=== PATIENT | female | born 1955 | race African-American/Black ===

== ENCOUNTER 2022-08-27 15:54 | Observation (INO) | payer MEDICARE, SELFPAY ==
[2022-08-27] VITALS (11 sets, daily range): BP systolic 157–200; BP diastolic 67–167; PULSE 55–65; RESP 14–19; TEMP 36.2; O2SAT 98–100
--- NOTE | ~2022-08-27 | CT_ITS ---
EXAMINATION: CT brain wo con DATE: 08/27/2022 17:49 INDICATION: Headache. TECHNIQUE: Computed tomography (CT) of the head was performed without intravenous contrast. The mA wa s adjusted according to patient size. Iterative reconstruction technique was employed. The dose-lengt h product was 605.33 mGy-cm. COMPARISON: None FINDINGS: There are scattered areas of low attenuation in the cerebral white matter. There is no intr acranial hemorrhage, acute infarction, or abnormal intracranial mass lesion. The ventricles are amparo l in size. The orbits are normal. There is mucosal thickening in the paranasal sinuses. There is near complete opacification of right sphenoid sinus with thickening and sclerosis of the sinus pires, con sistent with chronic sinusitis. The mastoid air cells are normal. IMPRESSION: 1. Moderate nonspecific cerebral white matter disease, which likely represents chronic small vessel i schemic disease. 2. Chronic sinusitis. Reviewed, dictated and finalized at location A. [facility] [employer] IMPRESSION: 1. Moderate nonspecific cerebral white matter disease, which likely represents chronic small vessel ischemic disease. 2. Chronic sinusitis.
--- NOTE | ~2022-08-27 | CT_ITS ---
EXAMINATION: CTA brain carotid DATE: 08/27/2022 23:18 INDICATION: Headache and dizziness. TECHNIQUE: Computed tomographic angiography (CTA) of the head was performed with 100 mL Omnipaque-350 intravenous contrast. CTA of the neck was performed with intravenous contrast. Automated exposure co ntrol and iterative reconstruction technique were employed. The dose-length product was 1203.26 mGy-c m. Maximum intensity projection and volume rendered 3D-reconstructions were created by the [employer]en Home[employer] st on a separate workstation. COMPARISON: Head CT 08/27/2022 FINDINGS: HEAD CTA: There are scattered areas of low attenuation in the cerebral white matter. There is no intr acranial hemorrhage, acute infarction, or abnormal intracranial mass lesion. The ventricles are amparo l in size. The orbits are normal. There is mucosal thickening in the paranasal sinuses. There is near complete opacification of right sphenoid sinus with thickening and sclerosis of the sinus pires, con sistent with chronic sinusitis. The mastoid air cells are normal. The vertebral arteries are codomina nt. There is no significant stenosis of basilar artery or the posterior cerebral arteries. There is m oderate stenosis of right cavernous internal carotid artery. There is mild stenosis of intracranial l eft internal carotid artery. There is no significant stenosis of the anterior or middle cerebral vivek ilene. Anterior communicating artery is normal. The posterior communicating arteries are normal. There is no aneurysm. NECK CTA: Calcified left lung nodules and calcified left hilar and mediastinal lymph nodes are consis tent with old granulomatous disease. There are nodules in the thyroid measuring up to 11 mm, likely n ot clinically significant. There are no pathologically enlarged lymph nodes. There is no significant stenosis of the vertebral arteries. There is plaque in the proximal internal carotid arteries. There is 0% stenosis of the proximal right internal carotid artery relative to normal distal artery lumen d iameter (NASCET criteria). There is 0% stenosis of the proximal left internal carotid artery relative to normal distal artery lumen diameter. There is mild cervical spondylosis. IMPRESSION: 1. Moderate nonspecific cerebral white matter disease, which likely represents chronic small vessel i schemic disease. 2. 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 3. Chronic sinusitis. 4. 0% stenosis of the proximal internal carotid arteries relative to normal distal artery lumen diame ters (NASCET criteria). Reviewed, dictated and finalized at location A. [employer] IMPRESSION: 1. Moderate nonspecific cerebral white matter disease, which likely represents chronic small vessel ischemic disease. 2. 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 3. Chronic sinusitis. 4. 0% stenosis of the proximal internal carotid arteries relative to normal dis benny artery lumen diameters (NASCET criteria).
--- NOTE | 2022-08-27 18:51 | ECG_ITS ---
Measurements Intervals [place] Rate: 55 P: 18 IL: 187 QRS: -5 QRSD: 107 T: 31 QT: 429 QTc: 414 Interpretive Statements SINUS BRADYCARDIA BASELINE ARTIFACT- I, III, AVR, AVL, AVF BORDERLINE ECG NO PREVIOUS ECG AVAILABLE FOR COMPARISON Electronically Signed On 08-29-2022 6:44:54 TRACTOR CRANE OPERATOR by Dylan Fritz D.O.
[2022-08-27 19:20] LABS: Basophils Percent Auto 0.3 % (0.2-1.2); Eosinophils Absolute Auto 0.1 K/mm3 (0-0.3); Eosinophils Percent Auto 1.4 % (0-4.4); Hematocrit 39.2 % (37.0-47.0); Hemoglobin 12.3 g/dL (12.0-15.0); Immature Granulocyte Absolute 0.02 K/mm3 (0.00-0.031); Immature Granulocyte Percent A 0.3 % (0-0.5); Lymphocytes Absolute Auto 2.91 K/mm3 (0.9-3.2); Lymphocytes Percent Auto 38.2 % (18.3-44.2); Mean Corpuscular HGB Conc 31.4 g/dl (32-36); Mean Corpuscular Hemoglobin 26.2 pg (26-34); Mean Corpuscular Volume 83.6 fl (80-100); Mean Platelet Volume 11.4 fl (7.4-10.4); Monocytes Absolute Auto 0.7 K/mm3 (0.1-0.6); Monocytes Percent Auto 9.3 % (2.6-8.5); Neutrophils Absolute Auto 3.8 K/mm3 (1.3-6.7); Neutrophils Percent Auto 50.5 % (45.5-73.1); Platelet Count Result 273 k/mm3 (150-375); Red Blood Count 4.69 M/mm3 (4.2-5.4); Red Cell Distribution Width 14.5 % (11.5-14.5); White Blood Count 7.6 K/mm3 (4.5-10.0)
[2022-08-27 19:30] LABS: Anion Gap 5 mmol/L (8-16); Blood Urea Nitrogen 20 mg/dL (7-17); Calcium 8.8 mg/dL (8.4-10.2); Carbon Dioxide 28 mmol/L (22-30); Chloride 109 mmol/L (98-107); Estimated Glomerular Filt Rate > 60; Glucose 113 mg/dL (65-110); Sodium 142 mmol/L (137-145)
[2022-08-27] MEDS: METOCLOPRAMIDE HCL INJ 10 MG/2 ML VIAL IV PUSH (19:32)
[2022-08-27] MEDS: SODIUM CHLORIDE 0.9% IV 500 ML 999 ML IV CONT (19:32)
[2022-08-27] MEDS: diphenhydrAMINE HCl INJ 50 MG/ML VIAL 25 MG IV PUSH (19:32)
[2022-08-27 19:47] LABS: Erythrocyte Sedimentation Rate 42 mm/hr (0-20)
--- NOTE | 2022-08-27 19:51 | PC.NURSE ---
1914 Assumed pt care from KOKO Hercules
--- NOTE | 2022-08-27 19:53 | ED.HA ---
HPI - Headache General Chief Complaint: Headache <Tati Peters PA-C - Last Filed: 08/28/22 01:58> Stated Complaint: CHRONIC HEADACHE <Tati Peters PA-C - Last Filed: 08/28/22 01:58> Time Seen by Provider: 08/27/22 18:22 <Tati Peters PA-C - Last Filed: 08/28/22 01:58> Source: patient <MYESHA Julio Last Filed: 08/28/22 01:58> Mode of arrival: ambulatory <Tati Peters PA-C - Last Filed: 08/28/22 01:58> Limitations: no limitations <Tati Peters PA-C - Last Filed: 08/28/22 01:58> History of Present Illness HPI Narrative: This is a 66 year old female that presents to the ER for headaches ongoing over the last couple of days. Reports associated elevated blood pressure. Reports she has been taking her home antihypertensives as prescribed. Reports a right sided aching headache associated with some intermittent blurry vision. Does not report she gets headaches too often. She has been taking Tylenol and Ibuprofen with some relief. Denies fever, vomiting, numbness or weakness. <Tati Peters PA-C - Last Filed: 08/28/22 01:58> Related Data Allergies/Adverse Reactions: Allergies Allergy/AdvReac Type Severity Reaction Status Date / Time No Known Allergies Allergy Verified 08/27/22 22:13 <Tati Peters PA-C - Last Filed: 08/28/22 01:58> Review of Systems Review of Systems: CONSTITUTIONAL: Denies fever EYES: Reports visual changes GASTROINTESTINAL: Denies nausea, vomiting NEUROLOGIC: Reports headache. Denies numbness, or weakness. <Tati Peters PA-C - Last Filed: 08/28/22 01:58> All systems reviewed & are unremarkable except as noted in HPI and below <Tati Peters PA-C - Last Filed: 08/28/22 01:58> PMFSH Past Medical History Medical History: Medical History (Updated 08/28/22 @ 01:49 by Tati Peters PA-C) History of diabetes mellitus History of hypertension <Tati Peters PA-C - Last Filed: 08/28/22 01:58> Social History Social History: Social History (Updated 08/27/22 @ 20:03 by Tati Peters PA-C) Smoking status: Never smoker <Tati Peters PA-C - Last Filed: 08/28/22 01:58> Exam Narrative: GENERAL: Well-appearing, well-nourished, and in no acute distress. HEAD: Normocephalic, atraumatic. EYES: PERRLA and EOMI. ENT: Nares clear, no rhinorrhea or epistaxis. Mucous membranes moist. Oropharynx without tonsillar hypertrophy exudate or other lesions. Bilateral TMs pearly real non-bulging NECK: Supple. No adenopathy or masses. CHEST: Clear to auscultation. No respiratory distress. No wheezes rales or rhonchi HEART: Regular rate and rhythm. No murmur heard. Normal peripheral pulses. EXTREMITIES: Normal range of motion. No edema. Strength equal in bilateral upper and lower extremities (5/5) SKIN: Warm, dry, no rash. NEURO: No focal deficits. Alert and oriented x3. Cranial nerves II through XII grossly intact. Normal gait PSYCH: Normal mood and affect <Tati Peters PA-C - Last Filed: 08/28/22 01:58> Course Course Emergency Course: Patient updated on workup thus far and need for admission. Reporting she is having a headache again. Tylenol ordered <Tati Peters PA-C - Last Filed: 08/28/22 01:58> FINANCIAL SERVICES TECHNICIAN/PA Physician Supervision For this patient encounter, I reviewed the FINANCIAL SERVICES TECHNICIAN or PA documentation, treatment plan, and medical decision making <Jim Andrade MD - Last Filed: 08/28/22 02:53> Consultations Consultation #1: Spoke with Dr. Salazar, vascular surgery about workup. Patient may follow up outpatient for findings on CTA, would need follow up with neurosurgery as the stenosis is in the cavernous carotid artery <Tati Peters PA-C - Last Filed: 08/28/22 01:58> Date: 08/28/22 <Tati Peters PA-C - Last Filed: 08/28/22 01:58> Consultation #2: Spoke with hospitalist about patient and workup who accepts admission <Tati Peters PA-C - Last Filed: 08/28/22 01:58> Date:
[2022-08-27 20:31] LABS: Alanine Aminotransferase 17 U/L (6-35); Alkaline Phosphatase 86 U/L (38-126); Aspartate Amino Transferase 24 U/L (14-36); Bilirubin,Total 0.3 mg/dL (0.2-1.3)
[2022-08-27 20:40] LABS: CRP 1.3 mg/dL (<1.0)
[2022-08-27 21:46] LABS: Influenza A QL RT-PCR Negative (Negative); Influenza B QL RT-PCR Negative (Negative); SARS-CoV-2 RNA PCR Negative
[2022-08-27] MEDS: METOPROLOL SUCCINATE EXT REL 100 MG TABCR PO (22:07)
[2022-08-27] MEDS: NIFEdipine 30 MG TAB.ER.24 PO (22:07)
[2022-08-28] VITALS (20 sets, daily range): BP systolic 141–196; BP diastolic 52–77; PULSE 47–71; RESP 16–26; TEMP 36.6–37.1; O2SAT 98–100; BMI 36.3
[2022-08-28] MEDS: hydrALAZINE HCL 20 MG/ML VIAL 10 MG IV PUSH (01:00)
[2022-08-28] MEDS: LOSARTAN POTASSIUM 50 MG TABLET PO (01:00)
--- NOTE | 2022-08-28 02:42 | ADMGEN ---
This patient, Jacinda Tenorio, was admitted to Medical Room 258-01. Patient/family oriented to hospital policies and general routines including ID bracelet, bed and alarms, visiting hours, pain management, procedures, bathroom and other care routines, personal items, smoking policy, room service/diet, and visiting hours. Information on how to activate the Rapid Response Team has been discussed. Patient/Family are encouraged to report perceived risks to care and to ask questions if they do not understand what they are told or what they should do.
--- NOTE | 2022-08-28 03:13 | PM.IMHP ---
H&P: HPI History of Present Illness Date/Time: 08/28/22 03:13 Chief Complaint: Headache Narrative: This is a 66-year-old female with past medical history significant for type 2 diabetes mellitus, hypertension. Patient presents to the emergency room due to daily occipital headache for about a week or so and uncontrolled hypertension. Patient also had blurry vision and a scotomas, denies any epigastric pain or chest pain or palpitations no ankle swelling or leg swelling or pedal swelling, no nausea, no vomiting, no syncope, no near syncope no lightheadedness. Patient states that she takes her medications daily at nighttime. Blood pressure upon presentation to emergency room was 200/167. Preliminary workup was significant for CT of the head was reported as: FINDINGS: There are scattered areas of low attenuation in the cerebral white matter. There is no intracranial hemorrhage, acute infarction, or abnormal intracranial mass lesion. The ventricles are normal in size. The orbits are normal. There is mucosal thickening in the paranasal sinuses. There is near complete opacification of right sphenoid sinus with thickening and sclerosis of the sinus pires, consistent with chronic sinusitis. The mastoid air cells are normal. IMPRESSION: 1. Moderate nonspecific cerebral white matter disease, which likely represents chronic small vessel ischemic disease. 2. Chronic sinusitis. CTA of head and neck was reported as; FINDINGS: HEAD CTA: There are scattered areas of low attenuation in the cerebral white matter. There is no intracranial hemorrhage, acute infarction, or abnormal intracranial mass lesion. The ventricles are normal in size. The orbits are normal. There is mucosal thickening in the paranasal sinuses. There is near complete opacification of right sphenoid sinus with thickening and sclerosis of the sinus pires, consistent with chronic sinusitis. The mastoid air cells are normal. The vertebral arteries are codominant. There is no significant stenosis of basilar artery or the posterior cerebral arteries. There is moderate stenosis of right cavernous internal carotid artery. There is mild stenosis of intracranial left internal carotid artery. There is no significant stenosis of the anterior or middle cerebral arteries. Anterior communicating artery is normal. The posterior communicating arteries are normal. There is no aneurysm. NECK CTA: Calcified left lung nodules and calcified left hilar and mediastinal lymph nodes are consistent with old granulomatous disease. There are nodules in the thyroid measuring up to 11 mm, likely not clinically significant. There are no pathologically enlarged lymph nodes. There is no significant stenosis of the vertebral arteries. There is plaque in the proximal internal carotid arteries. There is 0% stenosis of the proximal right internal carotid artery relative to normal distal artery lumen diameter (NASCET criteria). There is 0% stenosis of the proximal left internal carotid artery relative to normal distal artery lumen diameter. There is mild cervical spondylosis. IMPRESSION: 1. Moderate nonspecific cerebral white matter disease, which likely represents chronic small vessel ischemic disease. 2. 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 3. Chronic sinusitis. 4. 0% stenosis of the proximal internal carotid arteries relative to normal distal artery lumen diameters (NASCET criteria). Patient is being admitted for further evaluation management and treatment. Review of Systems Review of Systems: Occipital headache, scotomas, uncontrolled blood pressure. Constitutional: Constitutional: Denies chills, Denies fever(s), Denies malaise and Denies weakness Eyes: Eyes: Reports floaters ENT: Denies dysphagia, Denies vertigo, Denies dizziness, Denies odynophagia and Denies disequilibrium Cardiovascular: Cardiovascular: Denies edema, Denies claudication, Denies leg edema, Denies lightheadedness, Denies radiating jaw,
[2022-08-28] MEDS: ASPIRIN 81 MG ENTERIC TABLET PO (08:19)
[2022-08-28] MEDS: POTASSIUM CHLORIDE 20 MEQ TABLET.ER 40 MEQ PO (08:19)
[2022-08-28] MEDS: METOPROLOL SUCCINATE EXT REL 100 MG TABCR PO (08:20)
[2022-08-28] MEDS: FUROSEMIDE 40 MG TABLET PO (08:20)
[2022-08-28] MEDS: OLMESARTAN MEDOXOMIL 20 MG TABLET PO (08:20)
[2022-08-28] MEDS: NIFEdipine 30 MG TAB.ER.24 PO (08:20)
[2022-08-28] MEDS: SIMVASTATIN 20 MG TABLET PO (08:20)
[2022-08-28] MEDS: ACETAMINOPHEN 325 MG TABLET 650 MG PO ×3 (08:30→20:30)
[2022-08-28 09:16] LABS: Glucose Point of Care 157 mg/dl (65-105)
[2022-08-28 11:56] LABS: Glucose Point of Care 144 mg/dl (65-105)
--- NOTE | 2022-08-28 12:09 | PM.IMPN ---
Progress Note: A&P Assessment and Plan (1) Hypertensive urgency: Code(s): I16.0 - Hypertensive urgency Status: Acute Assessment and Plan: Admit to regular medical floor Restart home meds Continue to monitor 08/28/2022 interval history: 66-year-old female presented emergency department with complaint REZA, upon arrival systolic blood pressure was 200, patient states CC had been taking blood pressure medication regularly, however a blood pressure is trending on current regimen, CT scan of the head showed chronic small-vessel ischemic disease suggesting chronic elevated blood pressure most likely cause of her headache however will consult neurologist further recommendation, continue to monitor, I explained to the patient need to bring her blood pressure down slowly. (2) Headache: Qualifiers: Headache chronicity pattern: acute headache Headache type: unspecified Intractability: not intractable Qualified Code(s): R51.9 - Headache, unspecified Code(s): R51.9 - Headache, unspecified Status: Acute Assessment and Plan: Like please secondary to uncontrolled hypertension CT of the head reviewed CTA reviewed (3) Type 2 diabetes mellitus: Code(s): E11.9 - Type 2 diabetes mellitus without complications Status: Acute Assessment and Plan: Continue Januvia (4) Obesity (BMI 30-39.9): Code(s): E66.9 - Obesity, unspecified Status: Acute Assessment and Plan: Lifestyle and diet modifications Subjective Date/time seen: 08/28/22 12:09 Headache HPI-Narrative: This is a 66-year-old female with past medical history significant for type 2 diabetes mellitus, hypertension.? Patient presents to the emergency room due to daily occipital headache for about a week or so and uncontrolled hypertension.? Patient also had blurry vision and a scotomas, denies any epigastric pain or chest pain or palpitations no ankle swelling or leg swelling or pedal swelling, no nausea, no vomiting, no syncope, no near syncope no lightheadedness.? Patient states that she takes her medications daily at nighttime. Blood pressure upon presentation to emergency room was 200/167.? Preliminary workup was significant for CT of the head was reported as: FINDINGS: There are scattered areas of low attenuation in the cerebral white matter. There is no intracranial hemorrhage, acute infarction, or abnormal intracranial mass lesion. The ventricles are normal in size. The orbits are normal. There is mucosal thickening in the paranasal sinuses. There is near complete opacification of right sphenoid sinus with thickening and sclerosis of the sinus pires, consistent with chronic sinusitis. The mastoid air cells are normal. IMPRESSION: 1. Moderate nonspecific cerebral white matter disease, which likely represents chronic small vessel ischemic disease. 2. Chronic sinusitis. CTA of head and neck was reported as; 08/28/2022 interval history: 66-year-old female presented emergency department with complaint REZA, upon arrival systolic blood pressure was 200, patient states CC had been taking blood pressure medication regularly, however a blood pressure is trending on current regimen, CT scan of the head showed chronic small-vessel ischemic disease suggesting chronic elevated blood pressure most likely cause of her headache however will consult neurologist further recommendation, continue to monitor, I explained to the patient need to bring her blood pressure down slowly. Review of Systems Review of Systems: Occipital headache, scotomas, uncontrolled blood pressure. Constitutional: Constitutional: Denies chills, Denies fever(s), Denies malaise and Denies weakness Eyes: Eyes: Reports floaters ENT: Denies dysphagia, Denies vertigo, Denies dizziness, Denies odynophagia and Denies disequilibrium Cardiovascular: Cardiovascular: Denies edema, Denies claudication, Denies leg edema, Denies lightheadedness, Denies radiating jaw, nec
[2022-08-28 17:29] LABS: Glucose Point of Care 115 mg/dl (65-105)
[2022-08-28 20:29] LABS: Glucose Point of Care 248 mg/dl (65-105)
[2022-08-28] MEDS: IBUPROFEN 400 MG TABLET PO (22:47)
[2022-08-29] VITALS: PULSE 63
[2022-08-29] MEDS: ACETAMINOPHEN 325 MG TABLET 650 MG PO ×2 (02:32→09:07)
[2022-08-29 04:00] VITALS: PULSE 61
[2022-08-29 05:13] VITALS: BP 156/62; PULSE 70; RESP 18; TEMP 36.8; O2SAT 96
[2022-08-29 09:00] VITALS: PULSE 65
[2022-08-29 09:08] VITALS: PULSE 61
[2022-08-29] MEDS: METOPROLOL SUCCINATE EXT REL 100 MG TABCR PO (09:08)
[2022-08-29] MEDS: NIFEdipine 30 MG TAB.ER.24 PO (09:09)
[2022-08-29] MEDS: POTASSIUM CHLORIDE 20 MEQ TABLET.ER 40 MEQ PO (09:09)
[2022-08-29] MEDS: FUROSEMIDE 40 MG TABLET PO (09:09)
[2022-08-29] MEDS: SIMVASTATIN 20 MG TABLET PO (09:09)
[2022-08-29] MEDS: OLMESARTAN MEDOXOMIL 20 MG TABLET PO (09:09)
[2022-08-29] MEDS: ASPIRIN 81 MG ENTERIC TABLET PO (09:09)
--- NOTE | 2022-08-29 09:22 | WPDNEURCNPN ---
Assessment and Plan Assessment and plan (1) Headache: Qualifiers: Headache chronicity pattern: acute headache Headache type: unspecified Intractability: not intractable Qualified Code(s): R51.9 - Headache, unspecified Code(s): R51.9 - Headache, unspecified Status: Acute (2) Hypertensive urgency: Code(s): I16.0 - Hypertensive urgency Status: Acute (3) Type 2 diabetes mellitus: Code(s): E11.9 - Type 2 diabetes mellitus without complications Status: Acute (4) Obesity (BMI 30-39.9): Code(s): E66.9 - Obesity, unspecified Status: Acute Plan Jacinda Tenorio is a 66 year old female with a history of hypertension and diabetes presenting due to headache in the setting of hypertensive urgency. BP is still elevated in the 150s. - For persistent headache can trial migraine cocktail - Toradol 15mg, Benadryl 25mg, and Compazine 10mg - If no relief can repeat in 4 hours - If no improvement despite two trials of migraine cocktail can give IV Magnesium 2000mg - If headache is refractory to all medications, recommend MRV brain to rule out CVST - Outpatient Neurosurgery follow-up for carotid stenosis Consult date: 08/29/22 Reason for consult: Headache HPI: Jacinda Tenorio is a 66 year old female with a history of hypertension and diabetes presenting due to headache. Patient presented on 08/28 due to headache over the past few days and elevated BP (despite taking her antihypertensives). The headache was localized to the R side with associated blurriness of vision and seeing floaters. She describes headache as pressure like without any photophobia/phonophobia or nausea/vomiting. Headache location moved to the back of the head. She has no prior history of migraines. She did have some relief with Tylenol and ibuprofen at home. When patient presented to the emergency room, her blood pressure was in the 200s systolic. She was given a dose of hydralazine which brought the blood pressure down to 140s. CT head was unremarkable. CTA brain/carotid did show moderate stenosis of R cavernous ICA. The imaging findings were discussed with vascular surgeon and it was recommended that she have outpatient Neurosurgery evaluation for the ICA stenosis. Patient was subsequently admitted for hypertensive urgency. BP has been mostly in the 150s since admission. She continues to have a dull constant headache. She currently reports the headache as 6/10. She has no other complaints at this time. Review of Systems Constitutional: Constitutional: Reports no additional constitutional complaints Eyes: Eyes: Reports blurry vision ENT: Reports system reviewed and no additional complaints, except as documented Cardiovascular: Cardiovascular: Reports no additional cardiovascular complaints Respiratory: Respiratory: Reports no additional respiratory complaints Gastrointestinal: Gastrointestinal: Reports no additional gastrointestinal complaints Genitourinary: Genitourinary: Reports no additional female genitourinary complaints Musculoskeletal: Musculoskeletal: Reports no additional musculoskeletal complaints Integumentary/Breasts: Skin/Breast: Reports system reviewed and no additional complaints, except as docu Neurologic: Reports headache(s) Psychiatric: Psychiatric: Reports no additional psychiatric complaints [facility] Past Medical History Medical History History of diabetes mellitus History of hypertension Family History Family History Father Cerebrovascular accident Mother Cerebrovascular accident Sibling Heart attack S/P triple vessel bypass Breast cancer Social History Social History Smoking status: Never smoker Alcohol intake: never Substance use: never Lack of Transportation: No Lack of Food: Never
--- NOTE | 2022-08-29 12:27 | PM.DS ---
DS: Admitting Diagnosis Discharge Date 08/29/2022 Admitting Diagnosis headache DS: Discharge Diagnosis Discharge Diagnosis (1) Hypertensive urgency: Code(s): I16.0 - Hypertensive urgency Status: Acute Assessment and Plan: Admit to regular medical floor Restart home meds Continue to monitor 08/28/2022 interval history: 66-year-old female presented emergency department with complaint REZA, upon arrival systolic blood pressure was 200, patient states CC had been taking blood pressure medication regularly, however a blood pressure is trending on current regimen, CT scan of the head showed chronic small-vessel ischemic disease suggesting chronic elevated blood pressure most likely cause of her headache however will consult neurologist further recommendation, continue to monitor, I explained to the patient need to bring her blood pressure down slowly. (2) Headache: Qualifiers: Headache chronicity pattern: acute headache Headache type: unspecified Intractability: not intractable Qualified Code(s): R51.9 - Headache, unspecified Code(s): R51.9 - Headache, unspecified Status: Acute Assessment and Plan: Like please secondary to uncontrolled hypertension CT of the head reviewed CTA reviewed (3) Type 2 diabetes mellitus: Code(s): E11.9 - Type 2 diabetes mellitus without complications Status: Acute Assessment and Plan: Continue Januvia (4) Obesity (BMI 30-39.9): Code(s): E66.9 - Obesity, unspecified Status: Acute Assessment and Plan: Lifestyle and diet modifications DS: Summary Hospital Course Reason for hospitalization: Headache Narrative: This is a 66-year-old female with past medical history significant for type 2 diabetes mellitus, hypertension.? Patient presents to the emergency room due to daily occipital headache for about a week or so and uncontrolled hypertension.? Patient also had blurry vision and a scotomas, denies any epigastric pain or chest pain or palpitations no ankle swelling or leg swelling or pedal swelling, no nausea, no vomiting, no syncope, no near syncope no lightheadedness.? Patient states that she takes her medications daily at nighttime. Blood pressure upon presentation to emergency room was 200/167.? Preliminary workup was significant for CT of the head was reported as: FINDINGS: There are scattered areas of low attenuation in the cerebral white matter. There is no intracranial hemorrhage, acute infarction, or abnormal intracranial mass lesion. The ventricles are normal in size. The orbits are normal. There is mucosal thickening in the paranasal sinuses. There is near complete opacification of right sphenoid sinus with thickening and sclerosis of the sinus pires, consistent with chronic sinusitis. The mastoid air cells are normal. IMPRESSION: 1. Moderate nonspecific cerebral white matter disease, which likely represents chronic small vessel ischemic disease. 2. Chronic sinusitis. CTA of head and neck was reported as; FINDINGS: HEAD CTA: There are scattered areas of low attenuation in the cerebral white matter. There is no intracranial hemorrhage, acute infarction, or abnormal intracranial mass lesion. The ventricles are normal in size. The orbits are normal. There is mucosal thickening in the paranasal sinuses. There is near complete opacification of right sphenoid sinus with thickening and sclerosis of the sinus pires, consistent with chronic sinusitis. The mastoid air cells are normal. The vertebral arteries are codominant. There is no significant stenosis of basilar artery or the posterior cerebral arteries. There is moderate stenosis of right cavernous internal carotid artery. There is mild stenosis of intracranial left internal carotid artery. There is no significant stenosis of the anterior or middle cerebral arteries. Anterior communicating artery is normal. The posterior communicating arteries are normal. There is no aneurysm. N
[2022-08-29 12:31] LABS: Glucose Point of Care 164 mg/dl (65-105)
[2022-08-29 13:01] VITALS: BP 168/60
[2022-08-29 21:25] LABS: Glucose Point of Care 156 mg/dl (65-105)
== END 2022-08-29 13:17 | disposition home or self-care (01) ==
LOC: ANHED 08-28 01:49 → ANH2MED 08-28 02:23
PROVIDERS: Physician Assistant; Admitting Provider Internal Medicine; Emergency Provider Emergency Medicine; Visit Provider Family Medicine
DX: I16.0 Hypertensive urgency (principal); R51.9 Headache, unspecified; E11.9 Type 2 diabetes mellitus without complications; I10 Essential (primary) hypertension; E66.9 Obesity, unspecified; Z68.36 Body mass index [BMI] 36.0-36.9, adult; H53.459 Other localized visual field defect, unspecified eye; Z20.822 Contact with and (suspected) exposure to COVID-19; R90.82 White matter disease, unspecified; J32.9 Chronic sinusitis, unspecified; I65.21 Occlusion and stenosis of right carotid artery; R00.1 Bradycardia, unspecified; Z79.82 Long term (current) use of aspirin; Z79.84 Long term (current) use of oral hypoglycemic drugs; Z79.899 Other long term (current) drug therapy
CPT/HCPCS: 36415; 70450; 70496; 70498; 80048; 80076; 82948; 84132; 85025; 85652; 86140; 87636; 93005; 96361; 96374; 96375; 96376; 99285; A9270; G0378; J0131; J0360; J1200; J2765; J7040; Q9967

== ENCOUNTER 2022-09-05 13:52 | Emergency (ER) | payer MEDICARE, SELFPAY ==
[2022-09-05] VITALS (8 sets, daily range): BP systolic 143–215; BP diastolic 70–77; PULSE 53–60; RESP 13–21; TEMP 36.8; O2SAT 99–100
--- NOTE | 2022-09-05 13:58 | ECG_ITS ---
Measurements Intervals [place] Rate: 50 P: 19 [place]: 159 QRS: 3 QRSD: 108 T: 35 QT: 443 QTc: 408 Interpretive Statements SINUS BRADYCARDIA COMPARED TO ECG 08/27/2022 19:09:11 NO SIGNIFICANT CHANGES Electronically Signed On 09-05-2022 15:00:39 COMMISSIONING SPECIALIST by Elsi Parker M.D.
[2022-09-05 14:44] LABS: Basophils Percent Auto 0.4 % (0.2-1.2); Eosinophils Absolute Auto 0.1 K/mm3 (0-0.3); Eosinophils Percent Auto 1.6 % (0-4.4); Hematocrit 39.8 % (37.0-47.0); Hemoglobin 12.4 g/dL (12.0-15.0); Immature Granulocyte Absolute 0.02 K/mm3 (0.00-0.031); Immature Granulocyte Percent A 0.3 % (0-0.5); Lymphocytes Absolute Auto 1.97 K/mm3 (0.9-3.2); Lymphocytes Percent Auto 28.3 % (18.3-44.2); Mean Corpuscular HGB Conc 31.2 g/dl (32-36); Mean Corpuscular Hemoglobin 26.1 pg (26-34); Mean Corpuscular Volume 83.8 fl (80-100); Mean Platelet Volume 10.7 fl (7.4-10.4); Monocytes Absolute Auto 0.5 K/mm3 (0.1-0.6); Monocytes Percent Auto 7.2 % (2.6-8.5); Neutrophils Absolute Auto 4.3 K/mm3 (1.3-6.7); Neutrophils Percent Auto 62.2 % (45.5-73.1); Platelet Count Result 335 k/mm3 (150-375); Red Blood Count 4.75 M/mm3 (4.2-5.4); Red Cell Distribution Width 13.7 % (11.5-14.5)
[2022-09-05 14:51] LABS: Alanine Aminotransferase 22 U/L (6-35); Alkaline Phosphatase 92 U/L (38-126); Anion Gap 5 mmol/L (8-16); Aspartate Amino Transferase 20 U/L (14-36); Bilirubin,Total 0.5 mg/dL (0.2-1.3); Blood Urea Nitrogen 14 mg/dL (7-17); Calcium 9.1 mg/dL (8.4-10.2); Carbon Dioxide 29 mmol/L (22-30); Chloride 102 mmol/L (98-107); Estimated CRCL calculation 80 ml/min; Estimated Glomerular Filt Rate > 60; Glucose 139 mg/dL (65-110); Potassium 3.9 mmol/L (3.4-5.0); Sodium 136 mmol/L (137-145)
--- NOTE | 2022-09-05 15:20 | ED.RECABL ---
HPI - Recheck/Abnormal Lab/Rx General Chief Complaint: Recheck/Abnormal Lab/Rx Stated Complaint: htn Time Seen by Provider: 09/05/22 14:40 History of Present Illness HPI narrative: 66-year-old female with history of hypertension presenting here because she noted high blood pressure at home, she had seen her primary care doctor who had made some medication adjustment and increased her BP medications and she just started taking them yseterday, and her blood pressure was still high. Denies any symptoms at this time other than she is anxious and worried about having a stroke. Denies any focal numbness or weakness, chest pain, headache, blurry vision or dizziness. Related Data Home Medications Medication Instructions Recorded Confirmed Benicar 20 mg PO DAILY 08/28/22 08/28/22 Glucophage 1,000 mg PO BID 08/28/22 08/28/22 aspirin 81 mg PO DAILY 08/28/22 08/28/22 furosemide 40 mg tablet 40 mg PO DAILY 08/28/22 08/28/22 metoprolol succinate 100 mg 100 mg PO DAILY 08/28/22 08/28/22 tablet,extended release 24 hr nifedipine 30 mg tablet,extended 30 mg PO DAILY 08/28/22 08/28/22 release potassium chloride 20 mEq 40 meq PO DAILY 08/28/22 08/28/22 tablet,extended release(part/cryst) (Klor-Con M) simvastatin 20 mg tablet 20 mg PO DAILY 08/28/22 08/28/22 sitagliptin phosphate 100 mg 100 mg PO DAILY 08/28/22 08/28/22 tablet (Januvia) Allergies Allergy/AdvReac Type Severity Reaction Status Date / Time No Known Allergies Allergy Verified 08/30/22 10:38 Review of Systems Review of Systems: CONST: No fever. HEENT: No sore throat C/V: No chest pain RESP: No cough GI: No nausea/vomiting : No dysuria. M/S: No joint pain. SKIN: No rash. NEURO: [No headache or focal numbness or weakness] PSYCH: [No depression] [facility] Past Medical History Medical History History of diabetes mellitus History of hypertension Family History Family History Father Cerebrovascular accident Mother Cerebrovascular accident Sibling Heart attack S/P triple vessel bypass Breast cancer Social History Social History Smoking status: Never smoker Alcohol intake: never Substance use: never Lack of Transportation: No Lack of Food: Never True Current Housing: I Have Housing Concerned About Future Housing: No Difficulty Paying Gas/Electric Bills: No Difficulty Paying for Meds: No Currently Unemployed: No Education: Master's Degree or Higher Difficulty w/ Childcare or Family Care: No Spiritual care concerns: No Exam Narrative: EXAMINATION OF ORGAN SYSTEMS/BODY AREAS: Constitutional: Vital signs per nursing GENERAL:[No acute distress, non-toxic appearing.] Resting comfortably in bed HEAD: Normal with no signs of head trauma. EYES: EOMI, conjunctiva normal ENT: Hearing grossly intact LUNGS: Nonlabored breathing. HEART: [Regular rate and rhythm], normal pulses bilateral radius ABD: [Soft], nondistended EXT: Normal range of motion SKIN: [No rashes or lesions.] NEURO: [Alert and oriented x 3. No gross focal sensory or strength deficits.] CN2-12 intact. No slurred speech or asymmetric facies. Ambulating with normal gait. PSYCH: Normal affect Course Vital Signs Vital signs: Vital Signs Temperature 98.2 F 09/05/22 13:56 Pulse Rate 56 L 09/05/22 13:56 Respiratory Rate 20 09/05/22 13:56 Blood Pressure 215/75 H 09/05/22 13:56 Pulse Oximetry 100 09/05/22 13:56 Oxygen Delivery Room Air 09/05/22 13:56 Temperature 98.2 F 09/05/22 13:56 Pulse Rate 56 L 09/05/22 14:45 Respiratory Rate 19 09/05/22 14:45 Blood Pressure 185/70 H 09/05/22 14:31 Pulse Oximetry 100 09/05/22 14:45 Oxygen Delivery Room Air 09/05/22 13:56 MDM - Recheck/Abnormal Lab/Rx MDM Narrative Medical decision making narrative: Patient with asymptomat
== END 2022-09-05 15:27 | disposition home or self-care (01) ==
PROVIDERS: Emergency Medicine; Emergency Provider Emergency Medicine; PCP Internal Medicine
DX: I10 Essential (primary) hypertension (principal); E11.9 Type 2 diabetes mellitus without complications; R00.1 Bradycardia, unspecified; Z79.84 Long term (current) use of oral hypoglycemic drugs
CPT/HCPCS: 36415; 80053; 85025; 93005; 99284

== ENCOUNTER 2024-08-24 22:14 | Emergency (ER) | payer BC, MEDICARE, SELFPAY ==
--- NOTE | ~2024-08-24 | CT_ITS ---
CT head without contrast Indication: Hypertension COMPARISON: 08/27/2022 Technique: Serial scans were obtained through the brain without the administration of contrast. Dose reduction technique was used on this scan by utilizing automated exposure control and iterative recon struction technique. The dose-length product (DLP) was 681.00 mGy-cm. Findings: There is no evidence of intracranial hemorrhage, mass lesion, or acute infarct. The ventri cles and subarachnoid spaces are dilated, consistent with mild atrophy. Low attenuation regions are seen within the periventricular white matter bilaterally, likely representing changes from chronic mi crovascular ischemic disease. There is no evidence of edema, mass effect or midline shift. The visu alized paranasal sinuses and mastoid air cells are clear. Impression: No intracranial hemorrhage, mass, or acute infarct. Atrophy and chronic white matter changes, as above. Reviewed, dictated and finalized at location . UTIVE COACH Impression: No intracranial hemorrhage, mass, or acute infarct. Atrophy and chronic white matter changes, as above.
--- OUTSIDE RECORDS SUMMARY | 2024-08-24 22:16 | XMS_ITS | Encounter Summary ---
Author Organization [facility] Address 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
--- OUTSIDE RECORDS SUMMARY | 2024-08-24 22:16 | XMS_ITS | Clinical Summary ---
Author Organization [facility] Address [address] [place] [address]. 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 Gender Identity Not on file Sexual Orientation Not on file Plan of Treatment Health Maintenance Due Date Last Done Comments Colorectal Cancer Screening Colonoscopy (10 Years) 1954 Hepatitis C 1972 DTaP, Tdap and Td Vaccines ( 1 - Tdap) 1973 Mammogram Screening 1994 Zoster Vaccines (1 of 2) 2004 Annual Medicare Wellness Visit 10/26/2019 Pneumococcal Vaccine: 65+ Years (1 of 1 - PCV) 10/26/2019 COVID-19 Vaccine (3 - 2023-2 5 season) 2024 10/11/2020, 09/20/2020 Influenza Adult (#1) 2024 RSV Immunization or 60+ Years (1 - 1-dose 75+ series) 2029 Dexa Scan (General) Completed 12/29/2020 Meningococcal Vaccine Aged Out No brooks tamar eligible based on patient's age to complete this topic RSV Immunizations Under 20 Months Aged Out No longer eligible b ased on patient's age to complete this topic Procedures Procedure Name Priority Date/Time Associated Diagnosis Comments BONE DENSITY/DEXA Routine 12/29/2020 3:3 6 PM CDT Postartificial menopausal syndrome from Last 3 Months or Most Recently Relevant to Health Maintenance Results * BONE DENSITY/DEXA (12/29/2020 3:36 PM CDT) Anatomical Region Laterality Modality Bone Mammography 12/30/2020 8:50 AM CDT Impressions 12/30/2020 8:52 AM CDT IMPRESSION: WHO Classification: normal. FRAX: 0.5% chance of hip fracture and 7.4% chance of major osteoporotic fracture over the next 10 years. Referred By: RENE PARKER Interpreted By: Uday Goddard MD, 12/30/2020 8:50 AM Narrative 12/30/2020 8:52 AM CDT Examination: Bone Density Axial Exam Date/Time: 12/29/2020 3:36 PM Reason For Exam: ??Postartificial menopausal syndrome ?? Postmenopausal osteoporosis prevention, post artificial menopausal syndrome Comparison: None Findings: ??DEXA bone densitometry ?The bone mineral density (BMD) was determined by dual-energy x-ray absorptiometry, the results are as follows: ?AP Lumbar Spine L1 through L4 ?BMD Patient (GM/SQCM): 1.077 ?T-Score (Standard deviations from young adult peak bone density): 0.3 ?Left femoral neck: ?BMD Patient (GM/SQCM): 0.766 ?T-Score (Standard deviations from young adult peak bone density): -0.7 ? Total Right femur: ?BMD Patient (GM/SQCM): 0.964 ? T-Score (Standard deviations from young adult peak bone density): 0.2 Recommendations: All patients should ensure an adequate intake of dietary calcium and vitamin D. The NOF recommend adults under the age of 50 need 1000 mg of calcium and 400-800 IU of vitamin D daily. Effective therapy for the prevention and treatment of osteoporosis include biphosphonates. Follow-up: People with diagnosed cases of osteoporosis or at high risk for fracture should have regular bone mineral density test. For patients eligible for Medicare, routine testing is allowed once every 2 years. Testing frequency can be increased to one year for patients who have rapidly progressing disease, those who are receiving or discontinuing medical therapy to restore bone mass, or have additional risk factors. Procedure Note Uday Goddard MD - 12/30/2020 Examination: Bone Density Axial Exam Date/Time: 12/29/2020 3:36 PM Reason For Exam: Postartificial menopausal syndrome Postmenopausal osteoporosis prevention, post artificial menopausalsyndrome Comparison: None Findings: DEXA bone densitometry The bone mineral density (BMD) was determined bydual-energy x-ray absorptiometry, the results are as follows: AP Lumbar Spine L1 through L4 BMD Patient (GM/SQCM): 1.077 T-Score (Standard deviations from young adult peak bonedensity): 0.3 Left femoral neck: BMD Patient (GM/SQCM): 0.766 T-Score (Standard deviations from young adult peak bonedensity): -0.7 Total Right femur: BMD Patient (GM/SQCM): 0.964 T-Score (Standard deviations from young adult peak bonedensity): 0.2 Recommendations: All patients should ensure an adequate intake of dietary calcium andvitamin D. The NOF recommend adults under the age of 50 need 1000 mg ofcalcium and 400-800 IU of vitamin D daily. Effective therapy for theprevention and treatment of osteoporosis include biphosphonates. Follow-up: People with diagnosed cases of osteoporosis or at high risk for fractureshould have regular bone mineral density test. For patients eligible forMedicare, routine testing is allowed once every 2 years. Testing frequencycan be increased to one year for patients who have rapidly progressingdisease, those who are receiving or discontinuing medical therapy torestore bone mass, or have additional risk factors. IMPRESSION: WHO Classification: normal. FRAX: 0.5% chance of hip fracture and 7.4% chance of major osteoporoticfracture over the next 10 years. Referred By: RENE PARKER Interpreted By: Uday Goddard MD, 12/30/2020 8:50 AM us Rene Parker MD DEXA Final Result from Last 3 Months or Most Recently Relevant to Health Maintenance Insurance MED REPL[facility] MEDICARE Care Teams Manager Heavy Equipment Relationship Specialty Start Date End Date None, Provider, PCP - General 12/29/20
--- OUTSIDE RECORDS SUMMARY | 2024-08-24 22:16 | XMS_ITS | Clinical Summary ---
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
--- OUTSIDE RECORDS SUMMARY | 2024-08-24 22:16 | XMS_ITS | Encounter Summary ---
Author Organization [facility] Address 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
--- OUTSIDE RECORDS SUMMARY | 2024-08-24 22:16 | XMS_ITS | Clinical Summary ---
Author Organization [facility] Address [address] [place] [address] Care Team Providers Care Security Threat Analyst Name Role Phone Nain Null MD Primary Care Provider + Allergies No known active allergies Medications aspirin 81 mg chewable tablet chew 1 tablet (81MG) by oral route every day 0 2 Active lancets (OneTouch Delica Lancets) 30 gauge misc Use to test blood glucose one time each day DX E11.65 100 each 3 1 Active blood-glucose meter (OneTouch Verio Flex Start) kit Use to test blood glucose one time each day DX E11.65 1 each 1 Active blood glucose diagnostic (OneTouch Verio test strips) strip Use to test blood glucose one time each day DX E11.65 100 each 3 1 Active carvediloL (COREG) 25 mg tablet TAKE 1 TABLET BY MOUTH TWICE A DAY WITH FOOD 180 tablet 1 4 Active metFORMIN (GLUCOPHAGE) 1,000 mg tablet TAKE 1 TABLET BY MOUTH TWICE A DAY WITH MEALS 180 tablet 1 4 Active simvastatin (ZOCOR) 20 mg tablet TAKE 1 TABLET BY MOUTH EVERY DAY AT NIGHT 90 tablet 1 4 Active NIFEdipine CC 60 mg 24 hr tabletIndications :Primary hypertension TAKE 1 TABLET BY MOUTH EVERY DAY 90 tablet 1 4 Active Januvia 100 mg tabletIndications :Type 2 diabetes mellitus without complication, without long-term current use of insulin (CMS/HCC) (HCC) TAKE 1 TABLET BY MOUTH EVERY DAY 90 tablet 1 4 Active bumetanide (BUMEX) 1 mg tablet TAKE 1 TABLET BY MOUTH EVERY DAY 90 tablet 1 4 Active potassium chloride (Klor-Con) 20 mEq packet Take 1 packet (20 mEq total) by mouth 4 (four) times a day 360 packet 1 4 Active losartan (COZAAR) 100 mg tablet Take 1 tablet (100 mg total) by mouth daily 90 tablet 4 Active Active Problems Problem Noted Date Diagnosed Date Bilateral leg edema 10/17/2022 Assessment & Plan (02/20/2024 11:55 AM CDT): Stable on Bumex Assessment & Plan (08/07/2023 12:25 PM HIDE AND SKIN COLERER): Stable on Bumex Assessment & Plan (01/23/2023 9:25 AM CDT): Could increase Bumex to 2 mg as needed if swelling becomes worse. Assessment & Plan (10/17/2022 9:45 AM CDT): Stable on Bumex Class 1 obesity due to exces s calories with serious comorbidity and body mass index (BMI) of 34.0 to 34.9 in adult 10/16/2022 Assessment & Plan (02/20/2024 11:55 AM CDT): BMI Follow-up includes: exercise counseling. Assessment & Plan (08/07/2023 12:24 PM HIDE AND SKIN COLERER): BMI Follow-up includes: exercise counseling. Assessment & Plan (01/22/2023 7:25 AM CDT): BMI Follow-up includes: exercise counseling. Assessment & Plan (10/23/2022 8:02 AM CDT): BMI Follow-up includes: exercise counseling. Assessment & Plan (10/16/2022 3:35 PM CDT): BMI Follow-up includes: exercise counseling. Hypercholesterolemia 12/13/2013 Overview (11/02/2016): Hypercholesteremia Assessment & Plan (02/20/2024 11:55 AM CDT): Stable on simvastatin Assessment & Plan (08/07/2023 12:24 PM HIDE AND SKIN COLERER): Stable on simvastatin Assessment & Plan (01/22/2023 7:24 AM CDT): Stable on simvastatin Assessment & Plan (10/16/2022 3:34 PM CDT): Stable on simvastatin Hypertension 12/13/2013 Assessment & Plan (02/20/2024 11:55 AM CDT): Stable on nifedipine, carvedilol, and losartan Assessment & Plan (08/07/2023 12:23 PM HIDE AND SKIN COLERER): Stable on nifedipine, carvedilol, and losartan Assessment & Plan (01/22/2023 7:24 AM CDT): Stable on nifedipine, carvedilol, and losartan Assessment & Plan (10/23/2022 8:01 AM CDT): Improved with addition nifedipine. Continue carvedilol losartan Assessment & Plan (10/17/2022 9:51 AM CDT): She had hypertensive urgency in July. Was admitted to [facility]. Blood pressure running high. Continue losartan and carvedilol. Would restart nifedipine XL 60 mg once a day Assessment & Plan (11/07/2021 10:24 AM CDT): Controlled with medications - low salt diet continue medications per PCP Assessment & Plan (05/06/2021 10:34 AM CDT): Controlled with medications - low salt diet continue medications per PCP Assessment & Plan (11/04/2020 10:19 AM CDT): Controlled with medications - low salt diet continue medications per PCP Assessment & Plan (05/06/2020 11:04 AM CDT): Controlled with medications - low salt diet continue medications per PCP Type 2 diabetes mellitus wit hout complication, without long-term current use of insulin ([facility]) 05/29/2013 Overview (11/02/2016): Diabetes Assessment & Plan (02/20/2024 11:55 AM CDT): Stable on Januvia and metformin. Assessment & Plan (08/07/2023 12:23 PM HIDE AND SKIN COLERER): Stable on Januvia and metformin. Assessment & Plan (01/22/2023 7:25 AM CDT): Stable on Januvia and metformin. Follows with Dr. Mack. Assessment & Plan (10/17/2022 9:47 AM CDT): A1c was 6.6 this month. Continue Januvia and metformin. Follows with Dr. Mack. Assessment & Plan (05/06/2020 11:03 AM CDT): Control : improved control A1c 6.5% on 05/06/2020 A1c 7.2% on 10/01/2019 A1c 6.6% on 02/27/19 A1c 6.4% on 10/16/18. A1c 6.6% in . A1c was 7%, in March- was 6.8% in December 2017. A1c was 6.4% on 09/27/17. Was 6.5% in May 2017. Kidney: normal kidney functions in February/2019. Neuropathy : none Plan: Patient to continue on low carb diet. Continue same diabetic medication, but she can stop Glimepiride if she starts to get low sugars < 80. Monitor sugars once /day and keep am sugars 80-130. Hypoglycemia symptoms and treatment reviewed with patient. Call if having low sugars. Ophthalmology exam on regular basis. Resolved Problems Problem Noted Date Diagnosed Date Resolved Date Type 2 diabetes mellitus wit h hyperglycemia, without long-term current use of insulin ([facility]) 12/28/2017 10/16/2022 Assessment & Plan (11/07/2021 10:24 AM CDT): Control : in good control A1c 6.2% on 11/07/21 A1c 6.6% on 05/06/21 A1c 5.5% on 11/04/20 Kidney: normal kidney functions GFR 78 on 05/06/21 Neuropathy : none ? Plan: Patient to continue on low carb diet. Continue metformin and januvia Monitor sugars once /day and keep am sugars 80-130. Hypoglycemia symptoms and treatment reviewed with patient. Call if having low sugars. Ophthalmology exam on regular basis. Assessment & Plan (05/06/2021 10:34 AM CDT): Control : improved control after weight loss Has been off Glimepiride. A1c 6.6% on 05/06/21 A1c 5.5% on 11/04/20 A1c 6.5% on 05/06/2020 A1c 7.2% on 10/01/2019 Kidney: normal kidney functions GFR 86 on 05/06/20 Neuropathy : none ? Plan: Patient to continue on low carb diet. Continue metformin and januvia Monitor sugars once /day and keep am sugars 80-130. Hypoglycemia symptoms and treatment reviewed with patient. Call if having low sugars. Ophthalmology exam on regular basis. Assessment & Plan (11/04/2020 10:18 AM CDT): Control : improved control with weight loss A1c 5.5% on 11/04/20 A1c 6.5% on 05/06/2020 A1c 7.2% on 10/01/2019 A1c 6.6% on 02/27/19 A1c 6.4% on 10/16/18. Kidney: normal kidney functions GFR 86 on 05/06/20 Neuropathy : none ? Plan: ??Discontinue Glimepiride. Patient to continue on low carb diet. Continue metformin and januvia Monitor sugars once /day and keep am sugars 80-130. Hypoglycemia symptoms and treatment reviewed with patient. Call if having low sugars. Ophthalmology exam on regular basis. Encounters Date Type Department Care Team Description 06/13/2024 Telephone [facility] [address] [place] [address] Nain Null MD Forms Request from Last 3 Months Immunizations Name Administration Dates Next Due Influenza, Unspecified 02/21/2024(Deferred: Andreina ent decision) Surgical History Surgery Date Site/Laterality Comments TUBAL LIGATION 07/30/1972 - 07/29/1973 VAGINAL DELIVERY 07/30/1970 - 07/29/1971 : Medical History Medical History Date Comments Hx Other Medical 1972 undesired ferti litty Diabetes mellitus (HCC) Hypertension Hypercholesteremia 1970 ; Comme nts: preeclampsia; Outcome: 37 week 5 lb(s) 8 oz Male Family History Medical History Relation Name Comments Hypertension Father Ronald Luis Hypertension; Stroke Father Ronald Luis Breast cancer Father's Sister Hypertension Mother Kitty Luis Hypertension; Stroke Mother Kitty Luis Stroke; Cause of : Stroke Breast cancer Other Pat Aunt Breast cancer Sister 2 Cancer, breast ; Cancer Sister 3 Kirti Luis Heart attack Sister 3 Kirti Luis Relation Name Status Comments Father Ronald Luis Father's Sister Mother Kitty Luis (Age 75) Other Pat Aunt Sister 1 Alive Sister 2 Sister 3 Kirti Luis Social History Tobacco Use Types Packs/Day Years Used Date Smoking Tobacco: Never Passive Smoke Exposure: Past Smokeless Tobacco: Never Tobacco Cessation:Counseling Given: Not Answered Alcohol Use Standard Drinks/Week Comments No 0 (1 standard drink = 0.6 oz pur e alcohol) Humiliation, Afraid, Rape, and Kick questionnair e Answer Date Recorded Fear of Current or Ex-Partner No Emotionally Abused No 05/20/2019 Physically Abused No 05/20/2019 Sexually Abused No 05/20/2019 Social Connection and Isolation Panel [NHANES] A nswer Date Recorded Frequency of Communication with Friends and Fami ly Not on file 05/20/2019 Frequency of Social Gatherings with Friends and Family Not on file 05/20/2019 Attends Yarsani Services Not on file 05/20 Active Member of Clubs or Organizations Not on f ile 05/20/2019 Attends Club or Organization Meetings Not on israel e 05/20/2019 Marital Status 05/20/2019 AUDIT-C Answer Date Recorded Q1: How often do you have a drink containing alcohol? Never 02/21/2024 Q2: How many drinks containi ng alcohol do you have on a typical day when you are drinking? Patient does not drink Q3: How often do you have si x or more drinks on one occasion? Never 02/21/2024 PHQ-2 Answer Date Recorded PHQ-2 Total Score (If total score is 3 or more points, staff should administer the PHQ-9) 0 08/08/2023 Comments No Sex and Gender Information Value Date Recorded Sex Assigned at Not on file Legal Sex Female 10:32 AM HIDE AND SKIN COLERER Gender Identity Female 10/16/2022 9:55 PM CDT Sexual Orientation Straight 10/16/2022 9: 55 PM CDT Obstetrics History Para Term AB IAB SAB Ectopic Multiple Livin g Live Births 2 2 1 0 0 Date Outcome GA Total Labor Labor/2nd/3rd Weight Sex Type Anes PTL Staci A1 A5 Name Clin Para 1971 Term 37w0 d 2.495 kg (5 lb 8 oz) M Vag-S pont N Complications:Pre eclampsia/ Eclampsia Comments 05/14/50 Last Filed Vital Signs Vital Sign Reading Time Taken Comments Blood Pressure 122/64 02/21/2024 10:21 AM CDT Pulse 74 02/21/2024 10:21 AM CDT Temperature 36.2 ??C (97.1 ??F) 02/21/2024 10:21 AM C DT Respiratory Rate 18 02/21/2024 10:21 AM CDT Oxygen Saturation 98% 02/21/2024 10:21 AM CDT Inhaled Oxygen Concentration - - Weight 93.5 kg (206 lb 3.2 oz) 02/21/2024 10:21 AM CDT Height 167.6 cm (5' 5.98 ) 02/21/2024 10:21 AM C DT Body Mass Index 33.3 02/21/2024 10:21 AM CDT Plan of Treatment Health Maintenance Due Date Last Done Comments Hepatitis C Screening 1954 Pneumococcal vaccine 65+ (1 of 2 - PCV) 1960 DTaP/Tdap/Td Vaccine (1 - Tdap) 1965 Hepatitis B Screening 1972 Zoster Vaccine (1 of 2) 2004 Covid-19 Vaccine (2023-08 5 season) 2024 12/01/2021, 05/22/2021, 10/11/2020, Additional history exists Influenza Vaccine (#1) 2024 Breast Cancer Screening-Mammogram 05/23/2024 05/23/2023, 01/19/2022, 12/14/2020, Additional history exists Well Visit 65+ 05/23/2024 05/23/2023, 12/29, 12/14/2020, Additional history exists Depression Screening 08/08/2024 08/08/2023, 10/18/19 Dilated Eye Exam 08/08/2024 08/08/2023, 08/2020, 09/01/2019, Additional history exists Fall Risk Assessment 08/08/2024 08/08/2023, 01/23/2023, 10/17/2022 Hemoglobin A1C 02/11/2025 08/14/2024, 01/28, 08/01/2023, Additional history exists Foot Exam 02/20/2025 02/21/2024, 12/29, 11/07/2021, Additional history exists Albumin Creatinine Ratio, Urine 02/21/2025 02/22/2024, 01/17/2023, 03/21/2019 Lipid Panel 08/14/2025 08/14/2024, 01/28, 08/01/2023, Additional history exists eGFR 08/14/2025 08/14/2024, 01/28, 08/01/2023, Additional history exists Osteoporosis Screening-Bone Density Scan 12/29/2025 12/29/2020 Colon Cancer Screening-Colonoscopy 07/05/2026 07/05/2023 Colon Cancer Screening-CT Colonography Discontinued 07/05/2023 Colon Cancer Screening-DNA Stool Discontinued 07/05/20 23 Colon Cancer Screening-FIT Discontinued 07/05/2023 Colon Cancer Screening-Sigmoidoscopy Discontinued 07/05/2023 Procedures Procedure Name Priority Date/Time Associated Diagnosis Comments HEMOGLOBIN A1C Routine 08/14/2024 9:19 AM HIDE AND SKIN COLERER Type 2 diabetes mellitus without complication, without long-term current use of insulin ([facility]/HCC) (HCC) COMPREHENSIVE METABOLIC PANEL Routine 08/14/2024 9:19 AM HIDE AND SKIN COLERER Hypercholesterolem ia Primary hypertension LIPID PANEL Routine 08/14/2024 9:19 AM HIDE AND SKIN COLERER Hypercholesterolem ia ALBUMIN CREATININE RATIO, URINE Routine 02/22/2024 9:23 AM CDT DIABETES EYE EXAM Routine 08/08/2023 COLONOSCOPY Routine 07/05/2023 SCREENING MAMMOGRAM BILATERAL W BART Schedule Routine, Read Routine (OP Routine) 05/23/2023 3:55 PM CDT Encounter for screening mammogram for breast cancer DIABETES FOOT EXAM Routine 12/28/2017 from Last 3 Months or Most Recently Relevant to Health Maintenance Results * (ABNORMAL) Hemoglobin A1c (08/14/2024 9:19 AM HIDE AND SKIN COLERER) Hgb A1C 6.5(H) <5.7 % of total Hgb [facility] Comment: For someone without known diabetes, a hemoglobin A1c value of 6.5% or greater indicates that they may have diabetes and this should be confirmed with a follow-up test. For someone with known diabetes, a value <7% indicates that their diabetes is well controlled and a value greater than or equal to 7% indicates suboptimal control. A1c targets should be individualized based on duration of diabetes, age, comorbid conditions, and other considerations. Currently, no consensus exists regarding use of hemoglobin A1c for diagnosis of diabetes for children. ?? Blood 08/14/2024 9:19 AM HIDE AND SKIN COLERER 08/14/2024 9:21 AM HIDE AND SKIN COLERER Narrative [facility] - 08/15/2024 4:51 AM HIDE AND SKIN COLERER AN UPDATE OR CORRECTION HAS BEEN MADE TO NAME us Nain Null MD LAB BLOOD ORDERABLES Fin al Result [facility] [address] [place] [address] * Lipid panel (08/14/2024 9:19 AM HIDE AND SKIN COLERER) Cholesterol 171 <200 mg/dL [facility] HDL 54 > OR = 50 mg/dL [facility] Triglycerides 87 <150 mg/dL [facility] LDL 99 mg/dL (calc) [facility] Comment: Reference range: <100 Desirable range <100 mg/dL for primary prevention; ?? <70 mg/dL for patients with CHD or diabetic patients with > or = 2 CHD risk factors. LDL-C is now calculated using the Javier-Garcia calculation, which is a validated novel method providing better accuracy than the Friedewald equation in the estimation of LDL-C. Javier SS et al. NOEMI. 2013;310(19): 8151-0787 (http://education.Ynvisible/faq/KPO951) Chol/HDL ratio 3.2 <5.0 (calc) [facility] Non-HDL, (LDL+VLDL) 117 <130 mg/dL (calc) [facility] Comment: For patients with diabetes plus 1 major ASCVD risk factor, treating to a non-HDL-C goal of <100 mg/dL (LDL-C of <70 mg/dL) is considered a therapeutic option. Blood 08/14/2024 9:19 AM HIDE AND SKIN COLERER 08/14/2024 9:21 AM HIDE AND SKIN COLERER Narrative [facility] - 08/15/2024 4:51 AM HIDE AND SKIN COLERER AN UPDATE OR CORRECTION HAS BEEN MADE TO NAME Nain Null MD LAB BLOOD ORDERABLES Fin al Result [facility] [address] [place] [address] * (ABNORMAL) Comprehensive metabolic panel (08/14/2024 9:19 AM HIDE AND SKIN COLERER) Pathologist [facility] Glucose 146(H) 65 - 99 mg/dL [facility] Comment: ? Fasting reference interval For someone without known diabetes, a glucose value >125 mg/dL indicates that they may have diabetes and this should be confirmed with a follow-up test. BUN 17 7 - 25 mg/dL [facility] Creatinine 0.80 0.50 - 1.05 mg/dL [facility] eGFR 80 > OR = 60 mL/min/1.7 3m2 [facility] BUN/creat ratio SEE NOTE: 6 - 22 (calc) [facility] Comment: ?? Not Reported: BUN and Creatinine are within ?? reference range. ? Sodium 139 135 - 146 mmol/L [facility] Potassium, pl 3.8 3.5 - 5.3 mmol/L [facility] Chloride 100 98 - 110 mmol/L [facility] CO2 30 20 - 32 mmol/L [facility] Calcium 9.1 8.6 - 10.4 mg/dL [facility] Protein, sr 7.0 6.1 - 8.1 g/dL [facility] Albumin 3.9 3.6 - 5.1 g/dL [facility] GLOBULIN 3.1 1.9 - 3.7 g/dL (calc) [facility] Alb/glob ratio 1.3 1.0 - 2.5 (calc) [facility] Bilirubin, total 0.3 0.2 - 1.2 mg/dL [facility] Alk phos 71 37 - 153 U/L [facility] AST 9(L) 10 - 35 U/L [facility] ALT (SGPT) 10 6 - 29 U/L [facility] Blood 08/14/2024 9:19 AM HIDE AND SKIN COLERER 08/14/2024 9:21 AM HIDE AND SKIN COLERER Narrative [facility] - 08/15/2024 4:51 AM HIDE AND SKIN COLERER AN UPDATE OR CORRECTION HAS BEEN MADE TO NAME us Nain Null MD LAB BLOOD ORDERABLES Fin al Result [facility] [address] [address] * Albumin Creatinine Ratio, Urine (02/22/2024 9:23 AM CDT) Creatinine, ur 257 20 - 275 mg/dL [facility] Microalbumin, ur 0.7 See Note: mg/dL [facility] Comment: Reference Range: Reference Range Not established Microalbumin/creat ratio 3 <30 mg/g creat [facility] Comment: The ADA defines abnormalities in albumin excretion as follows: Albuminuria Category ?Result (mg/g creatinine) Normal to Mildly increased ?? <30 Moderately increased ? 30-299 Severely increased ? > OR = 300 The ADA recommends that at least two of three specimens collected within a 3-6 month period be abnormal before considering a patient to be within a diagnostic category. 02/22/2024 9:23 AM CDT 02/22/2024 9:24 AM CDT Narrative [facility] - 02/23/2024 1:47 PM CDT FASTING:YES AN UPDATE OR CORRECTION HAS BEEN MADE TO NAME FASTING: YES Nain Null MD LAB URINE ORDERABLES Fin al Result [facility] [address] [place] [address] * DIABETES EYE EXAM (08/08/2023) us Historical Provider HEALTH MAINTENANCE Final Result * Colonoscopy (07/05/2023) Anatomical Region Laterality Modality Other Historical Provider ENDOSCOPY PROCEDURES Luba l Result * Screening Mammogram Bilateral W Bart (05/23/2023 3:55 PM CDT) Anatomical Region Laterality Modality Breast Bilateral Mammography Impressions 05/23/2023 3:57 PM CDT BI-RADS?? ATLAS category (overall): 1 - Negative There is no mammographic evidence of malignancy. A 1 year screening mammogram is recommended. The patient has been or will be contacted. We recommend annual screening mammography for women at average risk of breast cancer beginning at age 40, based on guidelines of the [employer] [employer] (ACR Practice Parameter for the Performance of Screening and Diagnostic Mammography) and [place] [employer]. For women with and elevated risk of breast cancer, please refer to the ACR Practice Parameter for specific screening recommendations. The patient will be entered into a reminder system with a target due date of 1 year for her next screening exam. Narrative 05/23/2023 3:57 PM CDT Screening Mammogram Bilateral W Bart: 05/23/23 The study was acquired using full field digital technology and interpreted from soft copy. 2D digital mammographic views, as well as 3D digital tomosynthesis were performed in the CC and MLO projections. CLINICAL: ??Encounter for screening mammogram for breast cancer. ??No relevant medical history has been documented for this patient. ??History of breast cancer in Sister, Father's Sister, Other. COMPARISONS: 01/19/2022 Screening Mammogram Bilateral W Bart 12/14/2020 Screening Mammogram Bilateral W Bart 05/20/2019 Screening Mammogram Bilateral W Bart 05/23/2018 Screening Mammogram 2D Bilateral 01/11/2017 Screening Mammogram 2D Bilateral BREAST TISSUE: The breasts are heterogeneously dense, which may obscure small masses. FINDINGS: There is no new suspicious finding in either breast on mammogram. ?? Nain Null MD IMG MAMMO PROCEDURES Fin al Result * DIABETES FOOT EXAM (12/28/2017) Diabetic Foot Exam Unknown Historical Provider HEALTH MAINTENANCE Final Result from Last 3 Months or Most Recently Relevant to Health Maintenance Insurance [employer] MEDICARE MEDICARE SOLUTIONS MEDICARE Care Teams Security Threat Analyst Relationship Specialty Start Date End Date Nain Null MD [address] [place] [id number] PCP - General Internal Medicine 12/7/23
--- OUTSIDE RECORDS SUMMARY | 2024-08-24 22:16 | XMS_ITS | Encounter Summary ---
Author Organization [facility] Address 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
--- OUTSIDE RECORDS SUMMARY | 2024-08-24 22:16 | XMS_ITS | Referral Summary ---
Author Organization [facility] Address [address] [place] [address] Care Team Providers Care Trap Setter Name Role Phone Nain Null MD Primary Care Provider + Encounters Date Type Department Care Team Description 06/13/2024 Telephone [facility] Medical Group Primary Care [address] [place] [phone] Nain Null MD Forms Request from Last 3 Months Allergies No known active allergies Medications aspirin 81 mg chewable tablet chew 1 tablet (81MG) by oral route every day 0 2 Active lancets (OneTouch Delica Lancets) [facility] Use to test blood glucose one time [...] Bumex Assessment & Plan (08/07/2023 12:25 PM SCALLOP BINDER): Stable on Bumex Assessment & Plan (01/23/2023 [...] counseling. Assessment & Plan (08/07/2023 12:24 PM SCALLOP BINDER): BMI Follow-up includes: exercise counseling. Assessment & Plan (01/22/2023 7:25 AM CDT): BMI Follow-up includes: exercise counseling. Assessment & Plan (10/23/2022 8:02 AM CDT): BMI Follow-up includes: exercise counseling. Assessment & Plan (10/16/2022 3:35 PM CDT): BMI Follow-up includes: exercise counseling. Hypercholesterolemia 12/13/2013 Overview (11/02/2016): Hypercholesteremia Assessment & Plan (02/20/2024 11:55 AM CDT): Stable on simvastatin Assessment & Plan (08/07/2023 12:24 PM SCALLOP BINDER): Stable on simvastatin Assessment & Plan (01/22/2023 7:24 AM CDT): Stable on simvastatin Assessment & Plan (10/16/2022 3:34 PM CDT): Stable on simvastatin Hypertension 12/13/2013 Assessment & Plan (02/20/2024 11:55 AM CDT): Stable on nifedipine, carvedilol, and losartan Assessment & Plan (08/07/2023 12:23 PM SCALLOP BINDER): Stable on nifedipine, carvedilol, and losartan Assessment & Plan (01/22/2023 7:24 AM CDT): Stable on nifedipine, carvedilol, and losartan Assessment & Plan (10/23/2022 8:01 AM CDT): Improved with addition nifedipine. Continue carvedilol losartan Assessment & Plan (10/17/2022 9:51 AM CDT): She had hypertensive urgency in July. Was admitted to [facility]. Blood pressure running high. Continue losartan and [...] complication, without long-term current use of insulin ([facility]) 05/29/2013 Overview (11/02/2016): Diabetes Assessment & Plan (02/20/2024 11:55 AM CDT): Stable on Januvia and metformin. Assessment & Plan (08/07/2023 12:23 PM SCALLOP BINDER): Stable on Januvia and metformin. Assessment & [...] hyperglycemia, without long-term current use of insulin ([facility]) 12/28/2017 10/16/2022 Assessment & Plan [...] low sugars. Ophthalmology exam on regular basis. Immunizations Name Administration Dates Next Due Influenza, Unspecified 02/21/2024(Deferred: Andreian ent decision) Social History Tobacco Use Types Packs/Day Years [...] and Family Not on file 05/20/2019 Attends Sikh Services Not on file 05/20 Active Member [...] on file Legal Sex Female 10:32 AM SCALLOP BINDER Gender Identity Female 10/16/2022 9:55 PM CDT Sexual Orientation Straight 10/16/2022 9: 55 PM CDT Last Filed Vital Signs Vital Sign Reading [...] 02/21/2024 10:21 AM CDT Plan of Treatment Not on file Procedures Procedure Name Priority Date/Time Associated Diagnosis Comments HEMOGLOBIN A1C Routine 08/14/2024 9:19 AM SCALLOP BINDER Type 2 diabetes mellitus without complication, without long-term current use of insulin ([facility]) ([facility]) COMPREHENSIVE METABOLIC PANEL Routine 08/14/2024 9:19 AM SCALLOP BINDER Hypercholesterolem ia Primary hypertension LIPID PANEL Routine 08/14/2024 9:19 AM SCALLOP BINDER Hypercholesterolem ia ALBUMIN CREATININE RATIO, URINE Routine [...] * (ABNORMAL) Hemoglobin A1c (08/14/2024 9:19 AM SCALLOP BINDER) Hgb A1C 6.5(H) <5.7 % of total Hgb [facility] Comment: For someone without known diabetes, [...] for children. ?? Blood 08/14/2024 9:19 AM SCALLOP BINDER 08/14/2024 9:21 AM SCALLOP BINDER Narrative [facility] - 08/15/2024 4:51 AM SCALLOP BINDER AN UPDATE OR CORRECTION HAS BEEN MADE TO NAME us Nain Null MD LAB BLOOD ORDERABLES Fin al Result [facility] [address] [place] [address] * Lipid panel (08/14/2024 9:19 AM SCALLOP BINDER) [facility] Cholesterol 171 <200 mg/dL [facility] [...] factors. LDL-C is now calculated using the Javier-Radha calculation, which is a validated novel method providing better accuracy than the Friedewald equation in the estimation of LDL-C. Javier MONTGOMEYR et al. NOEMI. 2013;310(19): 5572-2492 (http://education.Metacafe.hoozin/faq/AFM123) Chol/HDL ratio 3.2 <5.0 (calc) [facility] Non-HDL, (LDL+VLDL) 117 <130 mg/dL (calc) [facility] Comment: For patients with diabetes plus 1 major ASCVD risk factor, treating to a non-HDL-C goal of <100 mg/dL (LDL-C of <70 mg/dL) is considered a therapeutic option. Blood 08/14/2024 9:19 AM SCALLOP BINDER 08/14/2024 9:21 AM SCALLOP BINDER Narrative [facility] - 08/15/2024 4:51 AM SCALLOP BINDER AN UPDATE OR CORRECTION HAS BEEN MADE TO NAME us Nain Null MD LAB BLOOD ORDERABLES Fin al Result [facility] [address] [address] [address] * (ABNORMAL) Comprehensive metabolic panel (08/14/2024 9:19 AM SCALLOP BINDER) [facility] Glucose 146(H) 65 - 99 mg/dL [...] [facility] Blood 08/14/2024 9:19 AM SCALLOP BINDER 08/14/2024 9:21 AM SCALLOP BINDER Narrative [facility] - 08/15/2024 4:51 AM SCALLOP BINDER AN UPDATE OR CORRECTION HAS BEEN MADE TO NAME Nain Null MD LAB BLOOD ORDERABLES Fin al Result Performing Organization Address [facility] Co de Phone Number [facility] [address] [place] [address] * Albumin Creatinine Ratio, Urine (02/22/2024 9:23 AM CDT) Pathologist [facility] Creatinine, ur 257 20 - 275 mg/dL [...] MD LAB URINE ORDERABLES Fin al Result Performing Organization Address [facility] Co de Phone Number [facility] [address] [address] [place] [address] * HM DIABETES EYE EXAM (08/08/2023) Historical Provider HEALTH MAINTENANCE Final Result * [...] age 40, based on guidelines of the [place] [employer] (ACR Practice Parameter for the Performance of Screening and Diagnostic Mammography) and [place] [employer]. For women [...] Most Recently Relevant to Health Maintenance Insurance [facility] MEDICARE MEDICARE SOLUTIONS [facility]IC[facility] Address: [address] [address] [place] [address] [employer] MEDICARE Care Teams Trap Setter Relationship Specialty Start Date End Date Nain Null MD [address] [place] [id number] PCP - General Internal Medicine 07/05/23
--- OUTSIDE RECORDS SUMMARY | 2024-08-24 22:17 | XMS_ITS | Encounter Summary ---
Author Organization [facility] Address [address] [place] [address] Care Team Providers Care Airport Manager Name Role Phone Unavailable Primary Care Provider Unavailabl e Encounter Details Date Type Department Care Team (Late st Contact Info) Description 05/18/1999 Outpatient Historical [facility] Deyvi Sahni MD Social History Tobacco Use Types Packs/Day Years Used Date Smoking Tobacco: Never Assessed Comments Unknown Sex and Gender Information Value Date Recorded Sex Assigned at Not on file Legal Sex Female 4:41 AM ENVIRONMENTAL SYSTEMS COORDINATOR Gender Identity Not on file Sexual Orientation Not on file documented as of this encounter Plan of Treatment Not on file documented as of this encounter Visit Diagnoses Not on filedocumented in this encounter
--- OUTSIDE RECORDS SUMMARY | 2024-08-24 22:17 | XMS_ITS | Encounter Summary ---
Author Organization [facility] Address [address] [place] [address] Care Team Providers Care Keyboard Action Assembler Name Role Phone Unavailable Primary Care Provider Unavailabl e Encounter Details Date Type Department Care Team (Late st Contact Info) Description 02/11/1999 Outpatient Historical [facility] Deyvi Sahni MD Social History Tobacco Use Types Packs/Day Years Used Date Smoking Tobacco: Never Assessed Comments Unknown Sex and Gender Information Value Date Recorded Sex Assigned at Not on file Legal Sex Female 4:41 AM TEST TECHNICIAN Gender Identity Not on file Sexual Orientation Not on file documented as of this encounter Plan of Treatment Not on file documented as of this encounter Visit Diagnoses Not on filedocumented in this encounter
[2024-08-24 22:41] VITALS: BP 150/86; PULSE 73; RESP 18; TEMP 36.9; O2SAT 100
--- OUTSIDE RECORDS SUMMARY | 2024-08-25 00:02 | XMS_ITS | Referral Summary ---
Author Organization [facility] Address [address] [place] [address] Care Team Providers Care Case Assembler Name Role Phone Nain Null MD Primary Care Provider + Encounters Date Type Department Care Team Description 06/13/2024 Telephone [facility] Medical Group Primary Care [address] [place] [phone] Nain Null MD Forms Request from Last 3 Months Allergies No known active allergies Medications aspirin 81 mg chewable tablet chew 1 tablet (81MG) by oral route every day 0 2 Active lancets (OneTouch Delica Lancets) 30 gauge [facility] Use to test blood glucose one time [...] Bumex Assessment & Plan (08/07/2023 12:25 PM SWIMMING POOL INSTALLER): Stable on Bumex Assessment & Plan (01/23/2023 [...] counseling. Assessment & Plan (08/07/2023 12:24 PM SWIMMING POOL INSTALLER): BMI Follow-up includes: exercise counseling. Assessment & Plan (01/22/2023 7:25 AM CDT): BMI Follow-up includes: exercise counseling. Assessment & Plan (10/23/2022 8:02 AM CDT): BMI Follow-up includes: exercise counseling. Assessment & Plan (10/16/2022 3:35 PM CDT): BMI Follow-up includes: exercise counseling. Hypercholesterolemia 12/13/2013 Overview (11/02/2016): Hypercholesteremia Assessment & Plan (02/20/2024 11:55 AM CDT): Stable on simvastatin Assessment & Plan (08/07/2023 12:24 PM SWIMMING POOL INSTALLER): Stable on simvastatin Assessment & Plan (01/22/2023 7:24 AM CDT): Stable on simvastatin Assessment & Plan (10/16/2022 3:34 PM CDT): Stable on simvastatin Hypertension 12/13/2013 Assessment & Plan (02/20/2024 11:55 AM CDT): Stable on nifedipine, carvedilol, and losartan Assessment & Plan (08/07/2023 12:23 PM SWIMMING POOL INSTALLER): Stable on nifedipine, carvedilol, and losartan Assessment & Plan (01/22/2023 7:24 AM CDT): Stable on nifedipine, carvedilol, and losartan Assessment & Plan (10/23/2022 8:01 AM CDT): Improved with addition nifedipine. Continue carvedilol losartan Assessment & Plan (10/17/2022 9:51 AM CDT): She had hypertensive urgency in July. Was admitted to [facility]. Blood pressure running high. Continue losartan [...] complication, without long-term current use of insulin ([facility]) 05/29/2013 Overview (11/02/2016): Diabetes Assessment & Plan (02/20/2024 11:55 AM CDT): Stable on Januvia and metformin. Assessment & Plan (08/07/2023 12:23 PM SWIMMING POOL INSTALLER): Stable on Januvia and metformin. Assessment & [...] hyperglycemia, without long-term current use of insulin ([facility]) 12/28/2017 10/16/2022 Assessment & Plan [...] Due Influenza, Unspecified 02/21/2024(Deferred: Andreina ent decision) Social History Tobacco Use Types [...] and Family Not on file 05/20/2019 Attends [employer] Services Not on file 05/20 Active Member [...] on file Legal Sex Female 10:32 AM SWIMMING POOL INSTALLER Gender Identity Female 10/16/2022 9:55 PM CDT [...] Comments HEMOGLOBIN A1C Routine 08/14/2024 9:19 AM SWIMMING POOL INSTALLER Type 2 diabetes mellitus without complication, without long-term current use of insulin ([facility]) ([facility]) COMPREHENSIVE METABOLIC PANEL Routine 08/14/2024 9:19 AM SWIMMING POOL INSTALLER Hypercholesterolem ia Primary hypertension LIPID PANEL Routine 08/14/2024 9:19 AM SWIMMING POOL INSTALLER Hypercholesterolem ia ALBUMIN CREATININE RATIO, URINE Routine [...] * (ABNORMAL) Hemoglobin A1c (08/14/2024 9:19 AM SWIMMING POOL INSTALLER) Hgb A1C 6.5(H) <5.7 % of total [...] for children. ?? Blood 08/14/2024 9:19 AM SWIMMING POOL INSTALLER 08/14/2024 9:21 AM SWIMMING POOL INSTALLER Narrative [facility] - 08/15/2024 4:51 AM SWIMMING POOL INSTALLER AN UPDATE OR CORRECTION HAS BEEN MADE TO NAME us Nain Null MD LAB BLOOD ORDERABLES Fin al Result [facility] [address] [place] [address] * Lipid panel (08/14/2024 9:19 AM SWIMMING POOL INSTALLER) [facility] Cholesterol 171 <200 mg/dL [facility] [...] equation in the estimation of LDL-C. Javier MONTGOMERY et al. NOEMI. 2013;310(19): 7736-4899 (http://education.Lamsa.Hullabalu/faq/IIM986) Chol/HDL ratio 3.2 <5.0 (calc) [facility] Non-HDL, (LDL+VLDL) 117 <130 mg/dL (calc) [facility] Comment: For patients with diabetes plus 1 major ASCVD risk factor, treating to a non-HDL-C goal of <100 mg/dL (LDL-C of <70 mg/dL) is considered a therapeutic option. Blood 08/14/2024 9:19 AM SWIMMING POOL INSTALLER 08/14/2024 9:21 AM SWIMMING POOL INSTALLER Narrative [facility] - 08/15/2024 4:51 AM SWIMMING POOL INSTALLER AN UPDATE OR CORRECTION HAS BEEN MADE TO NAME us Nain Null MD LAB BLOOD ORDERABLES Fin al Result [facility] [address] [phone] * (ABNORMAL) Comprehensive metabolic panel (08/14/2024 9:19 AM SWIMMING POOL INSTALLER) [facility] Glucose 146(H) 65 - 99 mg/dL [...] [facility] Blood 08/14/2024 9:19 AM SWIMMING POOL INSTALLER 08/14/2024 9:21 AM SWIMMING POOL INSTALLER Narrative [facility] - 08/15/2024 4:51 AM SWIMMING POOL INSTALLER AN UPDATE OR CORRECTION HAS BEEN MADE TO NAME Nain Null MD LAB BLOOD ORDERABLES Fin al Result Performing Organization Address [facility] Co de Phone Number [facility] [address] [place] [address] * Albumin Creatinine Ratio, Urine (02/22/2024 9:23 AM CDT) Pathologist [facility] Creatinine, ur 257 20 - 275 mg/dL [...] HAS BEEN MADE TO NAME FASTING: YES Nian Null MD LAB URINE ORDERABLES Fin al Result Performing Organization Address [facility] Co de Phone Number [facility] [address] [place] [place] [address] * HM DIABETES EYE EXAM (08/08/2023) Historical [...] age 40, based on guidelines of the [employer] (ACR Practice Parameter for the Performance of Screening and Diagnostic Mammography) and [employer]. For women [...] Most Recently Relevant to Health Maintenance Insurance [facility] MEDICARE [facility] Address: [address] [place] [address] MEDICARE SOLUTIONS [employer] MEDICARE Care Teams Case Assembler Relationship Specialty Start Date End Date Nain Null MD [address] [place] [address] PCP - General Internal Medicine 07/05/23
--- OUTSIDE RECORDS SUMMARY | 2024-08-25 00:02 | XMS_ITS | Encounter Summary ---
Author Organization [facility] Address [address] [place] [address] Care Team Providers Care Supervisor Finishing Name Role Phone Unavailable Primary Care Provider [...] on file Legal Sex Female 4:41 AM SENIOR LIVING SALES COUNSELOR Gender Identity Not on file Sexual Orientation Not on file documented as of this encounter Plan of Treatment Not on file documented as of this encounter Visit Diagnoses Not on filedocumented in this encounter
--- OUTSIDE RECORDS SUMMARY | 2024-08-25 00:02 | XMS_ITS | Encounter Summary ---
Author Organization [facility] Address [address] [place] [address] Care Team Providers Care Manager Strategic Marketing Name Role Phone Unavailable Primary Care Provider [...] on file Legal Sex Female 4:41 AM HOUSING MANAGER Gender Identity Not on file Sexual Orientation Not on file documented as of this encounter Plan of Treatment Not on file documented as of this encounter Visit Diagnoses Not on filedocumented in this encounter
--- OUTSIDE RECORDS SUMMARY | 2024-08-25 00:02 | XMS_ITS | Clinical Summary ---
Author Organization [facility] Address [address] [facility] Attn: Epic Prelude ADT [place] [address] Care Team Providers Care Instructional Technologist Name Role Phone Unavailable Primary Care Provider Unavailabl e Social History Tobacco Use Types Packs/Day Years Used Date Smoking Tobacco: Never Assessed Comments Unknown Sex and Gender Information Value Date Recorded Sex Assigned at Not on file Legal Sex Female 4:41 AM AUTOMOTIVE ENGINEERING TEACHER Gender Identity Not on file Sexual Orientation [...]
--- OUTSIDE RECORDS SUMMARY | 2024-08-25 00:02 | XMS_ITS | Encounter Summary ---
Author Organization [facility] Address [address] [place] [address] Care Team Providers Care Chain Puller Name Role Phone Unavailable Primary Care Provider [...] on file Legal Sex Female 4:41 AM SHIELD OPERATOR Gender Identity Not on file Sexual Orientation Not on file documented as of this encounter Plan of Treatment Not on file documented as of this encounter Visit Diagnoses Not on filedocumented in this encounter
--- OUTSIDE RECORDS SUMMARY | 2024-08-25 00:02 | XMS_ITS | Encounter Summary ---
Author Organization [facility] Address [address] [place] [address] Care Team Providers Care Statement Services Representative Name Role Phone Unavailable Primary Care Provider [...] on file Legal Sex Female 4:41 AM SPECIAL EDUCATION EDUCATIONAL ASSISTANT Gender Identity Not on file Sexual Orientation Not on file documented as of this encounter Plan of Treatment Not on file documented as of this encounter Visit Diagnoses Not on filedocumented in this encounter
--- OUTSIDE RECORDS SUMMARY | 2024-08-25 00:02 | XMS_ITS | Clinical Summary ---
Author Organization [facility] Address [address] [place] [address]. [place], [place] [id number] [place] [address] Care Team Providers Care Fretted Instruments Inspector Name Role Phone None, Provider MD Primary [...] on file Legal Sex Female 10:07 AM SEXOLOGIST Gender Identity Not on file Sexual Orientation [...] Relevant to Health Maintenance Insurance [facility] [employer] MEDICARE Care Teams Fretted Instruments Inspector Relationship Specialty Start Date End Date None, Provider, PCP - General 12/29/20
--- OUTSIDE RECORDS SUMMARY | 2024-08-25 00:02 | XMS_ITS | Encounter Summary ---
Author Organization [facility] Address [address] [place] [address] Care Team Providers Care Product Transfer Pumper Name Role Phone Unavailable Primary Care Provider [...] on file Legal Sex Female 4:41 AM DROP MACHINE OPERATOR Gender Identity Not on file Sexual Orientation Not on file documented as of this encounter Plan of Treatment Not on file documented as of this encounter Visit Diagnoses Not on filedocumented in this encounter
--- OUTSIDE RECORDS SUMMARY | 2024-08-25 00:02 | XMS_ITS | Clinical Summary ---
Author Organization [facility] Address [address] [place] [address] Care Team Providers Care Skiver Sock Linings Name Role Phone Nain Null MD Primary [...] Bumex Assessment & Plan (08/07/2023 12:25 PM PILE DRIVER OPERATOR BARGE MOUNTED): Stable on Bumex Assessment & Plan (01/23/2023 [...] counseling. Assessment & Plan (08/07/2023 12:24 PM PILE DRIVER OPERATOR [employer]GE M[employer]ED): BMI Follow-up includes: exercise counseling. Assessment & Plan (01/22/2023 7:25 AM CDT): BMI Follow-up includes: exercise counseling. Assessment & Plan (10/23/2022 8:02 AM CDT): BMI Follow-up includes: exercise counseling. Assessment & Plan (10/16/2022 3:35 PM CDT): BMI Follow-up includes: exercise counseling. Hypercholesterolemia 12/13/2013 Overview (11/02/2016): Hypercholesteremia Assessment & Plan (02/20/2024 11:55 AM CDT): Stable on simvastatin Assessment & Plan (08/07/2023 12:24 PM PILE DRIVER OPERATOR BARGE M[employer]ED): Stable on simvastatin Assessment & Plan (01/22/2023 7:24 AM CDT): Stable on simvastatin Assessment & Plan (10/16/2022 3:34 PM CDT): Stable on simvastatin Hypertension 12/13/2013 Assessment & Plan (02/20/2024 11:55 AM CDT): Stable on nifedipine, carvedilol, and losartan Assessment & Plan (08/07/2023 12:23 PM PILE DRIVER OPERATOR [employer]ED): Stable on nifedipine, carvedilol, and losartan Assessment & Plan (01/22/2023 7:24 AM CDT): Stable on nifedipine, carvedilol, and losartan Assessment & Plan (10/23/2022 8:01 AM CDT): Improved with addition nifedipine. Continue carvedilol losartan Assessment & Plan (10/17/2022 9:51 AM CDT): She had hypertensive urgency in July. Was admitted to [facility]. Blood pressure running high. Continue losartan and [...] complication, without long-term current use of insulin ([facility]) 05/29/2013 Overview (11/02/2016): Diabetes Assessment & Plan (02/20/2024 11:55 AM CDT): Stable on Januvia and metformin. Assessment & Plan (08/07/2023 12:23 PM PILE DRIVER OPERATOR [employer]): Stable on Januvia and metformin. Assessment & [...] hyperglycemia, without long-term current use of insulin ([facility]) 12/28/2017 10/16/2022 Assessment & Plan (11/07/2021 10:24 [...] Type Department Care Team Description 06/13/2024 Telephone [facility] [address] [place] [address] Nain Nlul MD Forms Request from Last 3 Months [...] and Family Not on file 05/20/2019 Attends Muslim Services Not on file 05/20 Active Member [...] on file Legal Sex Female 10:32 AM PILE DRIVER OPERATOR [employer] Gender Identity Female 10/16/2022 9:55 PM CDT [...] Comments HEMOGLOBIN A1C Routine 08/14/2024 9:19 AM PILE DRIVER OPERATOR [employer] Type 2 diabetes mellitus without complication, without long-term current use of insulin ([facility]) (HCC) COMPREHENSIVE METABOLIC PANEL Routine 08/14/2024 9:19 AM PILE DRIVER OPERATOR [employer] Hypercholesterolem ia Primary hypertension LIPID PANEL Routine 08/14/2024 9:19 AM PILE DRIVER OPERATOR [employer] Hypercholesterolem ia ALBUMIN CREATININE RATIO, URINE Routine [...] * (ABNORMAL) Hemoglobin A1c (08/14/2024 9:19 AM PILE DRIVER OPERATOR [employer]) Hgb A1C 6.5(H) <5.7 % of total Hgb [employer] Comment: For someone without known diabetes, [...] for children. ?? Blood 08/14/2024 9:19 AM PILE DRIVER OPERATOR [employer] 08/14/2024 9:21 AM PILE DRIVER OPERATOR [employer] Narrative [facility] - 08/15/2024 4:51 AM PILE DRIVER OPERATOR [employer] AN UPDATE OR CORRECTION HAS BEEN MADE TO NAME us Nain Null MD LAB BLOOD ORDERABLES Fin al Result [facility] [address] [place] [address] * Lipid panel (08/14/2024 9:19 AM PILE DRIVER OPERATOR [employer]) Cholesterol 171 <200 mg/dL [facility] [...] LDL-C. Javier SS et al. NOEMI. 2013;310(19): 6718-9383 (http://education.Zapa/faq/YCY824) Chol/HDL ratio 3.2 <5.0 (calc) [facility] Non-HDL, (LDL+VLDL) 117 <130 mg/dL (calc) [facility] Comment: For patients with diabetes plus 1 major ASCVD risk factor, treating to a non-HDL-C goal of <100 mg/dL (LDL-C of <70 mg/dL) is considered a therapeutic option. Blood 08/14/2024 9:19 AM PILE DRIVER OPERATOR [employer] 08/14/2024 9:21 AM PILE DRIVER OPERATOR [employer] Narrative [facility] - 08/15/2024 4:51 AM PILE DRIVER OPERATOR [employer] AN UPDATE OR CORRECTION HAS BEEN MADE TO NAME Nain Null MD LAB BLOOD ORDERABLES Fin al Result [facility] [address] [place] [address] * (ABNORMAL) Comprehensive metabolic panel (08/14/2024 9:19 AM PILE DRIVER OPERATOR [employer]) Pathologist [facility] Glucose 146(H) 65 - 99 mg/dL [facility] [...] [facility] Blood 08/14/2024 9:19 AM PILE DRIVER OPERATOR [employer] 08/14/2024 9:21 AM PILE DRIVER OPERATOR [employer] Narrative [facility] - 08/15/2024 4:51 AM PILE DRIVER OPERATOR [employer] AN UPDATE OR CORRECTION HAS BEEN MADE TO NAME us Nain Null MD LAB BLOOD ORDERABLES Fin al Result [facility] [address] [address] * Albumin Creatinine Ratio, Urine (02/22/2024 9:23 [...] MD LAB URINE ORDERABLES Fin al Result [facility] [address] [place] [address] * DIABETES EYE EXAM (08/08/2023) us Historical [...] age 40, based on guidelines of the [employer] (ACR Practice Parameter for the Performance of Screening and Diagnostic Mammography) and [place]. For women [...] Relevant to Health Maintenance Insurance [employer] MEDICARE [facility] MEDICARE Address: [address] [place] [address] MEDICARE [employer] [facility] MEDICARE Address: [address] [address] [place] [address] MEDICARE [facility] MEDICARE Address: [address] [place] [address] Care Teams Skiver Sock Linings Relationship Specialty Start Date End Date Nain Null MD [address] [place] [id number] PCP - General Internal Medicine 12/7/23
--- NOTE | 2024-08-25 00:27 | ECG_ITS ---
Test Date: 2024-08-25 01:03:19 Measurements Intervals Boyd Rate: 64 P: 19 MT: 185 QRS: -15 QRSD: 120 T: 33 QT: 428 QTc: 442 Interpretive Statements SINUS RHYTHM MODERATE INTRAVENTRICULAR CONDUCTION DELAY [110+ ms QRS DURATION] No previous ECG available for comparison Electronically Signed On 08-25-2024 21:21:43 GRINDER SET UP OPERATOR by Gerald Iniguez M.D.
--- NOTE | 2024-08-25 00:57 | ED.RECABL ---
HPI - Recheck/Abnormal Lab/Rx General Chief Complaint: Recheck/Abnormal Lab/Rx Stated Complaint: High bp, REZA Time Seen by Provider: 08/24/24 23:44 Source: patient and old records reviewed Mode of arrival: ambulatory Limitations: no limitations History of Present Illness HPI narrative: Patient is a 68-year-old female who presents the ED with report of headache and high blood pressure. Patient reports having intermittent headaches since . Present throughout her left sided and posterior head. States she has been taking ibuprofen at home which does improve the headache, but its returns as soon as the medication wears off. She has noticed her blood pressure has been elevated over the last few days as well, up to 180 systolic. She is on multiple medications for her blood pressure. She reports some intermittent lightheadedness. Denies vision changes, focal weakness/numbness, syncope, chest pain, shortness breath, nausea, vomiting. Related Data Home Medications ?Medication ?Instructions ?Recorded ?Confirmed ?Last Taken ?Type Benicar 20 mg PO DAILY 08/28/22 08/28/22 08/26/22 20:00 History Glucophage 1,000 mg PO BID 08/28/22 08/28/22 08/27/22 08:00 History aspirin 81 mg PO DAILY 08/28/22 08/28/22 08/26/22 20:00 History furosemide 40 mg tablet 40 mg PO DAILY 08/28/22 08/28/22 08/26/22 20:00 History metoprolol succinate 100 mg 100 mg PO DAILY 08/28/22 08/28/22 08/26/22 20:00 History tablet,extended release 24 hr nifedipine 30 mg tablet,extended 30 mg PO DAILY 08/28/22 08/28/22 08/26/22 20:00 History release potassium chloride 20 mEq 40 meq PO DAILY 08/28/22 08/28/22 08/26/22 20:00 History tablet,extended release(part/cryst) (Klor-Con M) simvastatin 20 mg tablet 20 mg PO DAILY 08/28/22 08/28/22 08/26/22 20:00 History sitagliptin phosphate 100 mg 100 mg PO DAILY 08/28/22 08/28/22 08/26/22 20:00 History tablet (Januvia) Allergies Allergy/AdvReac Type Severity Reaction Status Date / Time No Known Allergies Allergy Verified 08/30/22 10:38 Review of Systems Review of Systems: All systems reviewed & are unremarkable except as noted in HPI. All systems reviewed & are unremarkable except as noted in HPI and below FOR[facility]LY [facility] Past Medical History Medical History History of diabetes mellitus History of hypertension Family History Family History Father Cerebrovascular accident Mother Cerebrovascular accident Sibling Heart attack S/P triple vessel bypass Breast cancer Social History Social History Smoking status: Never smoker Alcohol intake: never Substance use: never Lack of Transportation: No Lack of Food: Never True Current Housing: I Have Housing Concerned About Future Housing: No Difficulty Paying Gas/Electric Bills: No Difficulty Paying for Meds: No Currently Unemployed: No Education: Master's Degree or Higher Difficulty w/ Childcare or Family Care: No Spiritual care concerns: No Exam Narrative: GENERAL: Well appearing, obese with BMI of 34.7, non-toxic, in no acute distress. HEAD: Normocephalic, atraumatic. EYES: PERRL/EOMI, conjunctivae clear bilaterally. NECK: Supple. No meningeal signs. RESPIRATORY: Airway patent, respirations nonlabored. Clear to auscultation bilaterally, no rales, rhonchi, wheezing. CARDIOVASCULAR: Regular rate and rhythm. Peripheral pulses 2+ and equal bilaterally. MUSCULOSKELETAL: Moves all extremities. No gross deformities. SKIN: Warm, dry, normal color. No rashes. NEURO: A&O X3. Speech clear. Follows commands. CN II-XII grossly intact. Sensation grossly intact. Steady gait. No ataxic movements. Strength 5/5 in upper and lower extremities bilaterally. PSYCHIATRIC: Appropriate mood and affect. Normal interaction. Course Vital Signs Vital signs: Vital Signs Temperature 98.5 F 08/24/24 22:41 Pulse Rate 73 08/24/24 22:41 Respiratory Rate 18 08/24/24 22:41 Blood Pressure 150/86 H 08/24/24 22:41 Pulse Oximetry 100 08/24/24 22:41 Oxygen Delivery Room Air 08/24/24 22:41 Temperature 98.5 F 08/24/24 22:41 Pulse Rate 70 08/25/24 01:22 Respiratory Rate 16 08/25/24 01:22 Blood Pressure 147/59 H 08/25/24 02:00 Pulse Oximetry 99 08/25/24 01:22 Oxygen Delivery Room Air 08/24/24 22:41 MDM - Recheck/Abnormal Lab/Rx MDM Narrative Medical decision making narrative: Patient presented to ED with report of headaches, elevated blood pressure. Blood pressure upon arrival 150/86. Vital signs are otherwise stable. Patient neurologically intact. No focal deficits or other concerning features on exam. Per records, patient's blood pressure is frequently elevated here in the ED. She has been admitted previously for hypertensive urgency. Laboratory studies obtained are unremarkable. Stable electrolytes. No leukocytosis. EKG w/o concerning ST changes. CT brain negative. Patient given migraine cocktail in the ED. She is feeling much better on re-evaluation. Blood pressure has improved into the 140 systolic. Feel patient is safe for discharge home at this time. She is comfortable with this. Again feeling much better. Recommended to continue Tylenol/ibuprofen/hydration at home for further headaches, recommended close follow-up with PCP for further evaluation and blood pressure medication management. Discussed strict return precautions. Patient is in agreement with plan. Discharged in stable condition. Medical Records Attestation: I reviewed the patient's medical records. Lab Data Attestation: I reviewed the patient's lab results. 08/25/24 01:17 08/25/24 01:17 Labs: Lab Results 08/25/24 Range/Units 01:17 WBC 6.5 (4.5-10.0) K/mm3 RBC 4.74 (4.2-5.4) M/mm3 Hgb 12.3 (12.0-15.0) g/dL Hct 39.1 (37.0-47.0) % MCV 82.5 (80-100) fl MCH 25.9 L (26-34) pg MCHC 31.5 L (32-36) g/dl RDW 14.5 (11.5-14.5) % Plt Count 311 (150-375) k/mm3 MPV 10.9 H (7.4-10.4) fl Immature Gran % (Auto) 0.2 (0-0.5) % Neut % (Auto) 48.6 (45.5-73.1) % Lymph % (Auto) 38.2 (18.3-44.2) % [place] % (Auto) 8.7 H (2.6-8.5) % Eos % (Auto) 4.0 (0-4.4) % Baso % (Auto) 0.3 (0.2-1.2) % Lymph # (Auto) 2.50 (0.9-3.2) K/mm3 Providence # (Auto) 0.6 (0.1-0.6) K/mm3 Eos # (Auto) 0.3 (0-0.3) K/mm3 Baso # (Auto) 0.0 (0.0-0.1) K/mm3 Abs Immat Gran (auto) 0.01 (0.00-0.031) K/mm3 Absolute Neuts (auto) 3.2 (1.3-6.7) K/mm3 Absolute Nucleated RBC 0.000 (0.0-0.012) K/mm3 Nucleated RBC % 0.0 (0.0-0.2) % PT 12.9 (11.1-14.7) Seconds INR 0.9 APTT 27.6 (22.3-36.8) Seconds Sodium 139 (137-145) mmol/L Potassium 3.6 (3.4-5.0) mmol/L Chloride 104 (98-107) mmol/L Carbon Dioxide 25 (22-30) mmol/L Anion Gap 10 (4-12) mmol/L BUN 20 H (7-17) mg/dL Creatinine 0.65 L (0.7-1.0) mg/dL Estim Creat Clear Calc 82 ml/min Estimated GFR > 60 (59 - ) Glucose 103 (65-110) mg/dL Calcium 8.9 (8.4-10.2) mg/dL Total Bilirubin 0.5 (0.2-1.3) mg/dL AST 22 (14-36) U/L ALT 23 (6-35) U/L Alkaline Phosphatase 93 (38-126) U/L Total Protein 7.0 (6.3-8.2) g/dL Albumin 3.9 (3.5-5.1) g/dL Imaging Data Attestation: I personally reviewed and interpreted this imaging study as follows: Radiologist's impression: STAT RAD CT brain: No hemorrhage, hydrocephalus, mass effect, or herniation. Bones are unremarkable. ECG Data EKG #1: Attestation: I personally reviewed and interpreted this ECG as follows: ECG completion date: 08/25/24 ECG completion time: 01:03 EKG Interpretation: normal rate (64), sinus rhythm and no ST changes Discharge Plan Discharge Clinical Impression: Headache, Elevated blood pressure reading with diagnosis of hypertension Patient Disposition: Home, Self-Care Condition: Stable Instructions: Antibiotic Form, Acute Headache (ED), Chronic Hypertension (ED), Hypertension (ED) Additional Instructions: Continue home blood pressure medications. Recommend keeping a log of blood pressure readings. Continue Tylenol and ibuprofen as needed for pain. Get plenty of rest. Stay well hydrated. Recommend low light/ low stimulus environment, limiting screen time. Recommend close follow-up with primary care doctor for further evaluation and blood pressure medication management. Return to the ED if you experience worsening or severe pain, severe dizziness, vision changes, unable to keep down food or drink, chest pain, difficulty breathing, numbness or weakness of arm or leg, or any other symptoms of concern. Patient Language: Guamanian Prescriptions: No Action furosemide 40 mg tablet 40 mg PO DAILY metoprolol succinate 100 mg tablet extended release 24 hr 100 mg PO DAILY nifedipine 30 mg tablet extended release 30 mg PO DAILY potassium chloride [Klor-Con M20] 20 mEq tablet,ER particles/crystals 40 meq PO DAILY simvastatin 20 mg tablet 20 mg PO DAILY Januvia 100 mg tablet 100 mg PO DAILY Benicar 20 mg PO DAILY Glucophage 1,000 mg PO BID aspirin 81 mg PO DAILY Follow-up/Referrals: Ortega,Scott Crawford MD [Primary Care Provider] - Time of Disposition: 02:50
[2024-08-25] MEDS: SODIUM CHLORIDE 0.9% IV 1,000 ML 999 ML IV CONT (01:09)
[2024-08-25] MEDS: diphenhydrAMINE HCl INJ 50 MG/ML VIAL 25 MG IV PUSH (01:10)
[2024-08-25] MEDS: METOCLOPRAMIDE HCL INJ 10 MG/2 ML VIAL IV PUSH (01:10)
[2024-08-25] MEDS: ACETAMINOPHEN 500 MG TABLET 1000 MG PO (01:10)
[2024-08-25 01:22] VITALS: BP 169/74; PULSE 70; RESP 16; O2SAT 99
[2024-08-25 01:25] LABS: Basophils Percent Auto 0.3 % (0.2-1.2); Eosinophils Absolute Auto 0.3 K/mm3 (0-0.3); Hematocrit 39.1 % (37.0-47.0); Hemoglobin 12.3 g/dL (12.0-15.0); Immature Granulocyte Absolute 0.01 K/mm3 (0.00-0.031); Immature Granulocyte Percent A 0.2 % (0-0.5); Lymphocytes Percent Auto 38.2 % (18.3-44.2); Mean Corpuscular HGB Conc 31.5 g/dl (32-36); Mean Corpuscular Hemoglobin 25.9 pg (26-34); Mean Corpuscular Volume 82.5 fl (80-100); Mean Platelet Volume 10.9 fl (7.4-10.4); Monocytes Absolute Auto 0.6 K/mm3 (0.1-0.6); Monocytes Percent Auto 8.7 % (2.6-8.5); Neutrophils Absolute Auto 3.2 K/mm3 (1.3-6.7); Neutrophils Percent Auto 48.6 % (45.5-73.1); Platelet Count Result 311 k/mm3 (150-375); Red Blood Count 4.74 M/mm3 (4.2-5.4); Red Cell Distribution Width 14.5 % (11.5-14.5); White Blood Count 6.5 K/mm3 (4.5-10.0)
[2024-08-25 01:34] LABS: Alanine Aminotransferase 23 U/L (6-35); Albumin Level 3.9 g/dL (3.5-5.1); Alkaline Phosphatase 93 U/L (38-126); Anion Gap 10 mmol/L (4-12); Aspartate Amino Transferase 22 U/L (14-36); Bilirubin,Total 0.5 mg/dL (0.2-1.3); Blood Urea Nitrogen 20 mg/dL (7-17); Calcium 8.9 mg/dL (8.4-10.2); Carbon Dioxide 25 mmol/L (22-30); Chloride 104 mmol/L (98-107); Estimated CRCL calculation 82 ml/min; Estimated Glomerular Filt Rate > 60; Glucose 103 mg/dL (65-110); Potassium 3.6 mmol/L (3.4-5.0); Sodium 139 mmol/L (137-145)
[2024-08-25 02:00] VITALS: BP 147/59
[2024-08-25 02:28] LABS: INR 0.9; Prothrombin Time 12.9 Seconds (11.1-14.7)
[2024-08-25 02:29] LABS: Partial Thromboplastin Time 27.6 Seconds (22.3-36.8)
== END 2024-08-25 02:56 | disposition home or self-care (01) ==
PROVIDERS: Emergency Provider Physician Assistant; PCP Internal Medicine
DX: R51.9 Headache, unspecified (principal); I10 Essential (primary) hypertension; E11.9 Type 2 diabetes mellitus without complications; Z79.84 Long term (current) use of oral hypoglycemic drugs; Z79.82 Long term (current) use of aspirin; Z79.899 Other long term (current) drug therapy; I45.9 Conduction disorder, unspecified
CPT/HCPCS: 36415; 70450; 80053; 85025; 85610; 85730; 93005; 96361; 96374; 96375; 99284; A9270; J1200; J2765; J7030